=== PATIENT | male | born 1955 | race Caucasian/White ===

== ENCOUNTER 2017-07-29 22:56 | Emergency (ER) | payer MEDICAID ==
[~2017-07-29] VITALS: Ht 180.3 cm; Wt 111.0 kg
[~2017-07-29 22:56] MED LIST: CARI350T PO; CLA10T PO; COMP-18; COU5T PO; DOL10T PO; ESOM40CA PO; FURO40TA4 PO; HYDR-569 PO; HYDR50TA65 PO; INSU100V5 IJ; IRBE75TA30 PO; LANTUS SQ; ONDA4TAB6 PO; OXYC30TA85 PO; TRIA16.5 NS
[2017-07-29 23:03] VITALS: BP 138/78
== END 2017-07-30 | disposition home or self-care (01) ==
LOC: ER 22:57
DX: I83.92 Asymptomatic varicose veins of left lower extremity (principal); I48.91 Unspecified atrial fibrillation; I11.0 Hypertensive heart disease with heart failure; I50.9 Heart failure, unspecified; G89.29 Other chronic pain; E78.00 Pure hypercholesterolemia, unspecified; J44.9 Chronic obstructive pulmonary disease, unspecified; I27.20 Pulmonary hypertension, unspecified; K21.9 Gastro-esophageal reflux disease without esophagitis; E11.42 Type 2 diabetes mellitus with diabetic polyneuropathy; Z87.11 Personal history of peptic ulcer disease; Z87.891 Personal history of nicotine dependence; Z86.14 Personal history of Methicillin resistant Staphylococcus aureus infection; Z56.0 Unemployment, unspecified; Z79.01 Long term (current) use of anticoagulants; Z79.4 Long term (current) use of insulin; Z79.899 Other long term (current) drug therapy
CPT/HCPCS: 12001; 99283; A6449

== ENCOUNTER 2017-10-31 06:21 | Emergency (ER) | payer MEDICAID ==
[~2017-10-31] VITALS: Ht 180.3 cm; Wt 106.8 kg
[2017-10-31 07:20] VITALS: BP 139/74
== END 2017-10-31 07:21 | disposition home or self-care (01) ==
LOC: ER 06:22
DX: I83.92 Asymptomatic varicose veins of left lower extremity (principal); E78.00 Pure hypercholesterolemia, unspecified; E11.42 Type 2 diabetes mellitus with diabetic polyneuropathy; G89.29 Other chronic pain; I11.0 Hypertensive heart disease with heart failure; I50.9 Heart failure, unspecified; J44.9 Chronic obstructive pulmonary disease, unspecified; I48.91 Unspecified atrial fibrillation; K21.9 Gastro-esophageal reflux disease without esophagitis; Z86.14 Personal history of Methicillin resistant Staphylococcus aureus infection; Z98.890 Other specified postprocedural states; Z87.891 Personal history of nicotine dependence; Z79.4 Long term (current) use of insulin; Z79.01 Long term (current) use of anticoagulants; Z88.5 Allergy status to narcotic agent; Z56.0 Unemployment, unspecified
CPT/HCPCS: 37799; 99284; A6449

== ENCOUNTER 2017-11-20 01:58 | Emergency (ER) | payer MEDICAID ==
[~2017-11-20] VITALS: Ht 180.3 cm; Wt 109.8 kg
[2017-11-20 02:05] VITALS: BP 168/90
[2017-11-20] MEDS ORDERED: triamcinolone acetonide 40mg/ml inj IM ONE (02:45)
[2017-11-20] MEDS ORDERED: LIDOcaine 1% 30ml preserv. free vial IJ ONE (02:45)
[2017-11-20] MEDS ORDERED: ketorolac trometh inj. 60 MG/2 ML VIAL IM ONE (03:25)
[2017-11-20] MEDS ORDERED: HYDROcodone/acetaminophen 5mg/325mg tablet PO ONE (03:25)
[2017-11-20] MEDS ORDERED: ondansetron 4mg rapidly disintigrating tab PO ONE (03:25)
[2017-11-20] MEDS ORDERED: morphine 4 MG/ML inj SYRINge IM ONE (03:30)
== END 2017-11-20 03:41 | disposition home or self-care (01) ==
LOC: ER 01:58
DX: M25.511 Pain in right shoulder (principal); I13.0 Hypertensive heart and chronic kidney disease with heart failure and stage 1 through stage 4 chronic kidney disease, or unspecified chronic kidney disease; E11.22 Type 2 diabetes mellitus with diabetic chronic kidney disease; N18.9 Chronic kidney disease, unspecified; I50.9 Heart failure, unspecified; E11.42 Type 2 diabetes mellitus with diabetic polyneuropathy; J44.9 Chronic obstructive pulmonary disease, unspecified; E78.00 Pure hypercholesterolemia, unspecified; I48.91 Unspecified atrial fibrillation; Z88.6 Allergy status to analgesic agent; Z79.4 Long term (current) use of insulin
CPT/HCPCS: 73030; 96372; 99284; J1885; J2270; J3301; J3490

== ENCOUNTER 2018-06-27 21:33 | Emergency (ER) | payer MEDICARE, MEDICAID ==
[~2018-06-27] VITALS: Ht 180.3 cm; Wt 109.0 kg
[~2018-06-27 21:33] MED LIST changes: +HYDR-4383 PO; -HYDR-569 PO
[2018-06-27 21:56] VITALS: BP 150/75
--- NOTE | 2018-06-27 22:32 | NUR ---
PATIENT ON COUMADIN FOR AFIB RIGHT LOWER LEG "VARICOSE VEIN BURST":ANTERIOR WRAPPED IN COBAN OVER 4X4
--- NOTE | 2018-06-27 22:54 | NUR ---
called me into his room to aske if his legs were swollen, I informed him he does have some edema and that he should put his feet up on the bed, he refused.
[2018-06-27] MEDS ORDERED: LIDOcaine 1.5% w/epinephrine 1:200,000 5ml ampul IJ ONE (23:20)
[2018-06-27] MEDS ORDERED: LIDOcaine 1% w/EPI 1:100,000 30ml vial (MDV) IJ ONE (23:25)
--- NOTE | 2018-06-27 23:45 | NUR ---
Pt was totally inappropriate with the physician right now. Telling him he didn't know what he was doing. The MD was doing everything right.
== END 2018-06-28 00:21 | disposition home or self-care (01) ==
LOC: ER 21:33
DX: I83.891 Varicose veins of right lower extremity with other complications (principal); E11.42 Type 2 diabetes mellitus with diabetic polyneuropathy; I48.91 Unspecified atrial fibrillation; E78.00 Pure hypercholesterolemia, unspecified; I11.0 Hypertensive heart disease with heart failure; I50.9 Heart failure, unspecified; J44.9 Chronic obstructive pulmonary disease, unspecified; K21.9 Gastro-esophageal reflux disease without esophagitis; G89.29 Other chronic pain; Z87.891 Personal history of nicotine dependence; Z56.0 Unemployment, unspecified; Z98.890 Other specified postprocedural states; Z88.5 Allergy status to narcotic agent; Z79.899 Other long term (current) drug therapy; Z79.4 Long term (current) use of insulin; Z79.01 Long term (current) use of anticoagulants; Z99.81 Dependence on supplemental oxygen
CPT/HCPCS: 35226; 99284; J3490; 99283

== ENCOUNTER 2018-07-26 21:07 | Emergency (ER) | payer MEDICARE, MEDICAID ==
[~2018-07-26] VITALS: Ht 180.3 cm; Wt 94.5 kg
[2018-07-27] MEDS ORDERED: HYDROcodone/acetaminophen 5mg/325mg tablet PO ONE
[2018-07-27 00:56] VITALS: BP 144/87
== END 2018-07-27 01:00 | disposition home or self-care (01) ==
LOC: ER 21:08
DX: I83.893 Varicose veins of bilateral lower extremities with other complications (principal); I48.91 Unspecified atrial fibrillation; J44.9 Chronic obstructive pulmonary disease, unspecified; K21.9 Gastro-esophageal reflux disease without esophagitis; G89.29 Other chronic pain; E11.42 Type 2 diabetes mellitus with diabetic polyneuropathy; I11.0 Hypertensive heart disease with heart failure; I50.9 Heart failure, unspecified; E78.00 Pure hypercholesterolemia, unspecified; Z86.14 Personal history of Methicillin resistant Staphylococcus aureus infection; Z98.890 Other specified postprocedural states; Z56.0 Unemployment, unspecified; Z88.5 Allergy status to narcotic agent; Z79.4 Long term (current) use of insulin; Z79.899 Other long term (current) drug therapy; Z79.01 Long term (current) use of anticoagulants
CPT/HCPCS: 12001; 99283

== ENCOUNTER 2018-08-02 21:16 | Emergency (ER) | payer MEDICARE, MEDICAID ==
[~2018-08-02] VITALS: Ht 180.3 cm; Wt 107.5 kg
[2018-08-03] MEDS ORDERED: acetaminophen 325mg tablet PO ONE (00:40)
[2018-08-03 01:20] VITALS: BP 122/68
== END 2018-08-03 01:25 | disposition home or self-care (01) ==
LOC: ER 21:17
DX: I83.91 Asymptomatic varicose veins of right lower extremity (principal); I11.0 Hypertensive heart disease with heart failure; I50.9 Heart failure, unspecified; E11.40 Type 2 diabetes mellitus with diabetic neuropathy, unspecified; I48.91 Unspecified atrial fibrillation; J44.9 Chronic obstructive pulmonary disease, unspecified; K21.9 Gastro-esophageal reflux disease without esophagitis; G89.29 Other chronic pain; M54.9 Dorsalgia, unspecified; Z56.0 Unemployment, unspecified; Z79.4 Long term (current) use of insulin; Z79.01 Long term (current) use of anticoagulants; Z88.6 Allergy status to analgesic agent
CPT/HCPCS: 99283

== ENCOUNTER 2019-02-04 15:51 | Emergency (ER) | payer MEDICARE, MEDICAID ==
[~2019-02-04] VITALS: Ht 180.3 cm; Wt 114.0 kg
--- NOTE | 2019-02-04 16:42 | NUR ---
Pt able to ambulate from triage to ER bed #6 +blisters on RLE, anterior dsouza above ankle +varicose veins on LLE
[2019-02-04] MEDS ORDERED: BACDS PO (16:55)
[2019-02-04] MEDS ORDERED: CEPH500C5 PO (16:55)
[2019-02-04] MEDS ORDERED: sulfamethoxazole/trimethoprim DS (800/160mg) tablet PO ONE (16:55)
[2019-02-04] MEDS ORDERED: cephalexin 250mg capsule PO ONE (16:55)
[2019-02-04] MEDS ORDERED: bacitracin 15gm ointment TP ONE (16:55)
[2019-02-04 17:12] VITALS: BP 130/74
== END 2019-02-04 17:31 | disposition home or self-care (01) ==
LOC: ER 15:52
DX: S80.821A Blister (nonthermal), right lower leg, initial encounter (principal); L03.115 Cellulitis of right lower limb; R60.0 Localized edema; I48.91 Unspecified atrial fibrillation; I11.0 Hypertensive heart disease with heart failure; I50.9 Heart failure, unspecified; E78.00 Pure hypercholesterolemia, unspecified; J44.9 Chronic obstructive pulmonary disease, unspecified; G47.30 Sleep apnea, unspecified; K21.9 Gastro-esophageal reflux disease without esophagitis; E11.9 Type 2 diabetes mellitus without complications; G89.29 Other chronic pain; F17.210 Nicotine dependence, cigarettes, uncomplicated; G62.9 Polyneuropathy, unspecified; Z86.14 Personal history of Methicillin resistant Staphylococcus aureus infection; Z87.11 Personal history of peptic ulcer disease; Z98.890 Other specified postprocedural states; Z56.0 Unemployment, unspecified; Z88.5 Allergy status to narcotic agent; Z79.4 Long term (current) use of insulin; Z79.01 Long term (current) use of anticoagulants; Z79.899 Other long term (current) drug therapy; X58.XXXA Exposure to other specified factors, initial encounter; Y93.89 Activity, other specified; Y92.89 Other specified places as the place of occurrence of the external cause; Y99.8 Other external cause status
CPT/HCPCS: 10140; 99284

== ENCOUNTER 2019-02-11 17:08 | Inpatient (IN) | payer MEDICARE, MEDICAID ==
[~2019-02-11] VITALS: Ht 180.3 cm; Wt 106.0 kg
[~2019-02-11 17:08] MED LIST changes: +BACDS PO; +CEPH500C5 PO
[2019-02-11] MEDS ORDERED: ondansetron/PF 4mg/2ml inj IV ONE (17:40)
[2019-02-11] MEDS ORDERED: piperacillin/tazo 3.375gm/50ml 50 ML IV ONE (17:40)
[2019-02-11] MEDS: morphine 4 MG/ML inj SYRINge IV PRN ×2 (18:02→22:51)
[2019-02-11 18:10] LABS: BASOPHILS % (AUTO) 0.4 % (0-1); EOSINOPHILS # (AUTO) 0.2 X10'3 (0-0.9); EOSINOPHILS % (AUTO) 3.5 % (0-6); HEMATOCRIT 36.2 % (42.0-52.0); HEMOGLOBIN 11.7 g/dl (14.0-17.9); LYMPHOCYTES # (AUTO) 0.7 X10'3 (1.1-4.8); LYMPHOCYTES % (AUTO) 10.5 % (21-51); MEAN CORPUSCULAR HEMOGLOBIN 27.7 PG (27.0-31.0); MEAN CORPUSCULAR HGB CONC 32.2 g/dL (33.0-36.5); MEAN PLATELET VOLUME 10.1 FL (7.4-10.4); MONOCYTES # (AUTO) 0.6 X10'3 (0-0.9); MONOCYTES % (AUTO) 8.6 % (2-12); NEUTROPHILS # (AUTO) 5.5 X10'3 (1.8-7.7); PLATELET COUNT 131 X10'3 (140-440); RED BLOOD COUNT 4.21 X10'6 (4.70-6.10); RED CELL DISTRIBUTION WIDTH 14.4 % (11.5-14.5); WHITE BLOOD COUNT 7.1 X10'3 (4.5-11.0)
[2019-02-11] MEDS ORDERED: albuterol 2.5 MG/3 ML nebule NEB ONE (18:25)
[2019-02-11] MEDS ORDERED: ipratropium/albuterol 3ml nebule NEB ONE (18:25)
[2019-02-11 18:26] LABS: ALANINE AMINOTRANSFERASE 30 U/L (12-78); ALBUMIN 3.5 G/DL (3.4-5.0); ALBUMIN/GLOBULIN RATIO 0.8 (1.1-1.5); ALKALINE PHOSPHATASE 147 IU/L (46-116); ANION GAP 4 (8-16); ASPARTATE AMINO TRANSFERASE 30 U/L (10-37); BILIRUBIN,TOTAL 0.7 MG/DL (0.1-1.0); BLOOD UREA NITROGEN 26 MG/DL (7-18); BUN/CREATININE RATIO 18.6 (5.4-32.0); CALCIUM 8.9 MG/DL (8.5-10.1); CHLORIDE 101 MMOL/L (99-107); GLUCOSE 100 MG/DL (70-104); POTASSIUM 5.1 MMOL/L (3.5-5.1); SODIUM 139 MMOL/L (135-145); TOTAL PROTEIN 7.8 G/DL (6.4-8.2); eGFR 51 ML/MIN
[2019-02-11] MEDS ORDERED: OXYC15TA88 PO (18:40)
[2019-02-11] MEDS ORDERED: DILT180C53 PO (18:40)
[2019-02-11] MEDS ORDERED: POTA10CA44 PO (18:40)
[2019-02-11] MEDS ORDERED: KETO15CR2 TOP (18:40)
[2019-02-11] MEDS ORDERED: CHOL50004 PO (18:40)
[2019-02-11] MEDS ORDERED: OMEP40CA13 PO (18:40)
[2019-02-11] MEDS ORDERED: IPRA3AMP31 (18:40)
[2019-02-11] MEDS ORDERED: LYR75C PO (18:40)
[2019-02-11] MEDS ORDERED: UMEC62.5 PO (18:40)
[2019-02-11] MEDS ORDERED: IRBE150T27 PO (18:40)
[2019-02-11] MEDS ORDERED: ALBU18HF2 PO (18:40)
--- NOTE | 2019-02-11 20:10 | NUR ---
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 INSTRUCTED THAT SANDWICHES ARE FOR PATIENTS ONLY AND WE HAVE A VERY LIMITED SUPPLY AND ORIENTED TO VENDING MACHINES THROUGHOUT HOSPITAL, ANDREW FLORES OFFERED LUMBER DRIVER BIANCA CHAIMFANTASMA INSTEAD. JAROCHO HUSAIN REPORTED THAT PT WAS TRYING TO LEAVE ER TO "MAKE A PHONE CALL", PT GIVEN IN ROOM PHONE INSTEAD. PT THEN TRIED TO READJUST OXYGEN. PT IS PACING IN ROOM.
[2019-02-11] MEDS ORDERED: magnesium 2GM in 50ml NS 50 ML IV PRN (20:35)
[2019-02-11] MEDS ORDERED: potassium CL 10mEq/100ml bag 100 ML IV PRN ×2 (20:35)
[2019-02-11] MEDS ORDERED: potassium Cl 20 mEq SR tablet PO PRN ×2 (20:35)
[2019-02-11] MEDS ORDERED: magnesium 4gm in 100ml NS 100 ML IV PRN (20:35)
[2019-02-11] MEDS ORDERED: mag hydrox/Alum hydrox/simeth 30ml oral suspension PO PRN (20:35)
[2019-02-11] MEDS ORDERED: magnesium Cl slow-release 64mg tablet PO PRN (20:35)
[2019-02-11] MEDS ORDERED: ondansetron/PF 4mg/2ml inj IV PRN (20:35)
[2019-02-11] MEDS ORDERED: acetaminophen 325mg tablet PO PRN (20:35)
[2019-02-11 21:30] VITALS: BP 120/20
--- NOTE | 2019-02-11 21:30 | NUR ---
TOOK PT UP TO ROOM. PT UNSATISFIED WITH "SO MANY RULES HERE". PT UPSET THAT HE COULD NOT HAVE INHALER IN HIS POCKET. RECEIVING RN YAKOV AND I TALKED WITH PT ABOUT HOW IMPORTANT IT IS THAT THE NURSES KNOW WHAT MEDICATIONS HE TAKES AND WHEN. PT THEN DID NOT WANT TO WEAR OXYGEN 24/7 AND DID NOT WANT SIDE RAILS UP. PT STATED HE WANTED TO LEAVE BUT PT DECIDED TO GIVE "US ONE NIGHT AND SEE HOW IT GOES".
[2019-02-11] MEDS ORDERED: glucagon, human recombinant 1mg kit SUBCUT PRN (23:05)
[2019-02-11] MEDS ORDERED: dextrose ORAL solution 15 GM/59 ML bottle PO PRN ×2 (23:05)
[2019-02-11] MEDS ORDERED: MESSAGE TO PHARMACY PO ONE (23:05)
[2019-02-11] MEDS ORDERED: dextrose 50%-water 50ml dispensing syringe IV PRN ×2 (23:05)
[2019-02-11] MEDS ORDERED: ipratropium/albuterol 3ml nebule NEB PRN (23:05)
[2019-02-12] VITALS: BP 130/80
[2019-02-12] MEDS: oxyCODONE IR 5mg (immed. release) tablet PO PRN ×5 (02:04→23:54)
[2019-02-12] MEDS: ipratropium/albuterol 3ml nebule NEB SCH ×6 (02:17→23:00)
[2019-02-12 06:02] LABS: BASOPHILS # (AUTO) 0.1 X10'3 (0-0.2); BASOPHILS % (AUTO) 1.2 % (0-1); EOSINOPHILS # (AUTO) 0.3 X10'3 (0-0.9); EOSINOPHILS % (AUTO) 4.9 % (0-6); HEMATOCRIT 36.2 % (42.0-52.0); HEMOGLOBIN 11.5 g/dl (14.0-17.9); LYMPHOCYTES # (AUTO) 0.9 X10'3 (1.1-4.8); MEAN CORPUSCULAR HEMOGLOBIN 28.2 PG (27.0-31.0); MEAN CORPUSCULAR HGB CONC 31.9 g/dL (33.0-36.5); MEAN CORPUSCULAR VOLUME 88.5 FL (78-98); MEAN PLATELET VOLUME 10.6 FL (7.4-10.4); MONOCYTES # (AUTO) 0.6 X10'3 (0-0.9); NEUTROPHILS # (AUTO) 4.7 X10'3 (1.8-7.7); NEUTROPHILS % (AUTO) 71.9 % (42-75); PLATELET COUNT 127 X10'3 (140-440); RED BLOOD COUNT 4.09 X10'6 (4.70-6.10); RED CELL DISTRIBUTION WIDTH 14.7 % (11.5-14.5); WHITE BLOOD COUNT 6.6 X10'3 (4.5-11.0)
[2019-02-12 06:14] LABS: ALBUMIN 3.6 G/DL (3.4-5.0); ANION GAP 5 (8-16); BLOOD UREA NITROGEN 30 MG/DL (7-18); BUN/CREATININE RATIO 23.1 (5.4-32.0); CALCIUM 8.8 MG/DL (8.5-10.1); CHLORIDE 100 MMOL/L (99-107); GLUCOSE 78 MG/DL (70-104); MAGNESIUM 1.8 MG/DL (1.5-2.4); POTASSIUM 5.1 MMOL/L (3.5-5.1); SODIUM 139 MMOL/L (135-145); TOTAL CARBON DIOXIDE 33.6 MMOL/L (24-32); eGFR 55 ML/MIN
--- NOTE | 2019-02-12 06:30 | NUR ---
Patient in room [facility]. I have received report from Pat RN and had the opportunity to ask questions and assume patient care.
[2019-02-12 06:46] LABS: PLATELET ESTIMATE DECREASED
[2019-02-12 06:47] LABS: LARGE PLATELETS FEW
[2019-02-12 08:00] VITALS: BP 122/55
[2019-02-12] MEDS ORDERED: enoxaparin 40mg/0.4ml syringe SQ SCH (08:00)
[2019-02-12] MEDS: K and/or MAG REPLACEMENT MC SCH (08:00)
[2019-02-12] MEDS: heparin, porcine 5000 units/ml vial SQ SCH ×2 (08:00→19:42)
[2019-02-12] MEDS: pregabalin 75mg capsule PO SCH (08:00)
[2019-02-12] MEDS: budesonide 0.5mg/2ml UD nebule IH SCH ×2 (09:00→20:20)
[2019-02-12] MEDS: diltiazem CD 180mg cap (once-daily) PO SCH (09:27)
[2019-02-12] MEDS: loratadine 10mg tablet PO SCH (09:29)
[2019-02-12] MEDS: pantoprazole 40mg Tablet.DR PO SCH (09:29)
[2019-02-12] MEDS: vitamin D (cholecalciferol) 1,000 unit tablet PO SCH (09:30)
[2019-02-12] MEDS: furosemide 40mg/4ml inj IV SCH ×3 (09:31→19:43)
[2019-02-12] MEDS: ketoconazole 2% cream 15gm TP SCH (09:34)
[2019-02-12] MEDS: CefTRIAXone 2gm/D5W 50ml 50 ML IV SCH (09:35)
[2019-02-12 11:00] VITALS: BP 111/69
--- NOTE | 2019-02-12 11:35 | NUR ---
WOUND INFECTION EDUCATION PROVIDED BY WOUND CARE 1. Patient instructed to call their primary doctor, or go the ED immediately if any of the following symptoms occur: * Increased pain in wound * Increase in drainage from the wound * Redness in the skin surrounding the wound * Warmth in the skin surrounding the wound * Bleeding from the wound * Temperature of 101 or greater 2. If any of these occur while in the hospital tell a nurse immediately. Addendum: 02/12/19 at 1137 by Olga Ortega RN Amended: Links added.
--- NOTE | 2019-02-12 18:30 | NUR ---
Problems reprioritized. Patient report given, questions answered & plan of care reviewed with Sharon HUSAIN.
--- NOTE | 2019-02-12 18:35 | NUR ---
Patient in room [facility] 355. I have received report from PEREZ HUSAIN and had the opportunity to ask questions and assume patient care.
[2019-02-12] MEDS: lactobacillus rhamnosus 10,000 MMU CELLS/CAPSULE PO SCH (19:36)
[2019-02-12] MEDS: insulin glargine (Lantus) pen - multi-dose SQ SCH (21:00)
[2019-02-13] VITALS: BP 134/77
[2019-02-13] MEDS: ipratropium/albuterol 3ml nebule NEB SCH ×5 (03:00→19:23)
[2019-02-13] MEDS: oxyCODONE IR 5mg (immed. release) tablet PO PRN ×5 (04:23→23:24)
[2019-02-13 05:35] LABS: BASOPHILS % (AUTO) 0.6 % (0-1); EOSINOPHILS # (AUTO) 0.2 X10'3 (0-0.9); EOSINOPHILS % (AUTO) 3.8 % (0-6); HEMATOCRIT 36.3 % (42.0-52.0); HEMOGLOBIN 11.6 g/dl (14.0-17.9); LYMPHOCYTES # (AUTO) 0.8 X10'3 (1.1-4.8); LYMPHOCYTES % (AUTO) 12.8 % (21-51); MEAN CORPUSCULAR HEMOGLOBIN 27.8 PG (27.0-31.0); MEAN CORPUSCULAR HGB CONC 32.1 g/dL (33.0-36.5); MEAN CORPUSCULAR VOLUME 86.8 FL (78-98); MEAN PLATELET VOLUME 9.9 FL (7.4-10.4); MONOCYTES # (AUTO) 0.6 X10'3 (0-0.9); MONOCYTES % (AUTO) 8.5 % (2-12); NEUTROPHILS # (AUTO) 4.8 X10'3 (1.8-7.7); NEUTROPHILS % (AUTO) 74.3 % (42-75); PLATELET COUNT 123 X10'3 (140-440); RED BLOOD COUNT 4.18 X10'6 (4.70-6.10); RED CELL DISTRIBUTION WIDTH 14.7 % (11.5-14.5); WHITE BLOOD COUNT 6.5 X10'3 (4.5-11.0)
[2019-02-13 05:54] LABS: ALBUMIN 3.4 G/DL (3.4-5.0); ANION GAP 1 (8-16); BLOOD UREA NITROGEN 23 MG/DL (7-18); BUN/CREATININE RATIO 23.7 (5.4-32.0); CALCIUM 9.4 MG/DL (8.5-10.1); CHLORIDE 100 MMOL/L (99-107); CREATININE 0.97 MG/DL (0.60-1.10); GLUCOSE 101 MG/DL (70-104); MAGNESIUM 1.8 MG/DL (1.5-2.4); POTASSIUM 4.5 MMOL/L (3.5-5.1); SODIUM 140 MMOL/L (135-145); TOTAL CARBON DIOXIDE 38.7 MMOL/L (24-32); eGFR 77 ML/MIN
--- NOTE | 2019-02-13 06:30 | NUR ---
Problems reprioritized. Patient report given, questions answered & plan of care reviewed with PHIL HUSAIN.
--- NOTE | 2019-02-13 07:06 | NUR ---
Patient in room [facility] 355. I have received report from MI HUSAIN and had the opportunity to ask questions and assume patient care.
[2019-02-13] MEDS: pregabalin 75mg capsule PO SCH (08:00)
[2019-02-13] MEDS: K and/or MAG REPLACEMENT MC SCH (08:00)
[2019-02-13] MEDS: heparin, porcine 5000 units/ml vial SQ SCH ×2 (08:00→19:22)
[2019-02-13] MEDS: budesonide 0.5mg/2ml UD nebule IH SCH ×2 (08:12→19:23)
[2019-02-13] MEDS: lactobacillus rhamnosus 10,000 MMU CELLS/CAPSULE PO SCH ×2 (08:30→19:19)
[2019-02-13] MEDS: loratadine 10mg tablet PO SCH (08:30)
[2019-02-13] MEDS: pantoprazole 40mg Tablet.DR PO SCH (08:31)
[2019-02-13] MEDS: diltiazem CD 180mg cap (once-daily) PO SCH (08:31)
[2019-02-13] MEDS: CefTRIAXone 2gm/D5W 50ml 50 ML IV SCH (08:35)
[2019-02-13] MEDS: furosemide 40mg/4ml inj IV SCH ×2 (08:35→19:22)
[2019-02-13] MEDS: vitamin D (cholecalciferol) 1,000 unit tablet PO SCH (08:36)
[2019-02-13] MEDS: ketoconazole 2% cream 15gm TP SCH (08:45)
[2019-02-13 09:05] VITALS: BP 146/80
--- NOTE | 2019-02-13 10:41 | NUR ---
DM Consult: A1C <7 and not appropriate for DM ed at this time. Addendum: 02/13/19 at [address] Amended: Links added.
[2019-02-13] MEDS: acetaminophen 325mg tablet PO PRN ×2 (11:35→19:19)
[2019-02-13] MEDS ORDERED: albuterol 2.5 MG/3 ML nebule NEB PRN (12:50)
[2019-02-13] MEDS: calamine LOTION TP PRN (13:39)
--- NOTE | 2019-02-13 13:56 | NUR ---
patient noticed by Dr Jara and staff to be itching. Rash observed on torso and bilat thighs. Nothing observed in patients hair. patient stated that he has fleas at home and has had rash for about a month. Calamine liquid ordered and given. patient still has +3 odema in bilat lower legs Patient non compliant with elevating legs.. home in haler ok to use q4hrly patient wanted inhaler at bedside but Dr jara stated patient can have inhaler q4hrly. But staff will keep inhaler since patient is already having neb tmt.
[2019-02-13] MEDS: VENTOLIN IH PRN (17:01)
--- NOTE | 2019-02-13 17:33 | NUR ---
patient scraped right dsouza on chair. cleaned and bandaide applied to site. patient appears comfortable at time of report
[2019-02-13 18:00] VITALS: BP 129/74
--- NOTE | 2019-02-13 18:23 | NUR ---
Problems reprioritized. Patient report given, questions answered & plan of care reviewed with Sharon HUSAIN.
--- NOTE | 2019-02-13 18:30 | NUR ---
Patient in room [facility] 355. I have received report from PHIL HUSAIN AND LORETO RN and had the opportunity to ask questions and assume patient care.
[2019-02-13] MEDS: insulin glargine (Lantus) pen - multi-dose SQ SCH (21:00)
[2019-02-13 23:45] VITALS: BP 119/62
[2019-02-14] MEDS: ipratropium/albuterol 3ml nebule NEB SCH ×8 (00:02→23:00)
[2019-02-14] MEDS: VENTOLIN IH PRN ×2 (03:06→14:12)
[2019-02-14] MEDS: oxyCODONE IR 5mg (immed. release) tablet PO PRN ×5 (04:18→22:29)
[2019-02-14 05:23] LABS: BASOPHILS % (AUTO) 0.5 % (0-1); EOSINOPHILS # (AUTO) 0.2 X10'3 (0-0.9); EOSINOPHILS % (AUTO) 4.3 % (0-6); HEMATOCRIT 36.4 % (42.0-52.0); HEMOGLOBIN 11.8 g/dl (14.0-17.9); LYMPHOCYTES # (AUTO) 0.8 X10'3 (1.1-4.8); LYMPHOCYTES % (AUTO) 14.9 % (21-51); MEAN CORPUSCULAR HEMOGLOBIN 27.9 PG (27.0-31.0); MEAN CORPUSCULAR HGB CONC 32.3 g/dL (33.0-36.5); MEAN CORPUSCULAR VOLUME 86.5 FL (78-98); MEAN PLATELET VOLUME 10.3 FL (7.4-10.4); MONOCYTES # (AUTO) 0.5 X10'3 (0-0.9); MONOCYTES % (AUTO) 9.3 % (2-12); PLATELET COUNT 108 X10'3 (140-440); RED BLOOD COUNT 4.21 X10'6 (4.70-6.10); RED CELL DISTRIBUTION WIDTH 14.5 % (11.5-14.5); WHITE BLOOD COUNT 5.7 X10'3 (4.5-11.0)
[2019-02-14 05:36] LABS: ALBUMIN 3.3 G/DL (3.4-5.0); ANION GAP 3 (8-16); BLOOD UREA NITROGEN 22 MG/DL (7-18); BUN/CREATININE RATIO 27.2 (5.4-32.0); CALCIUM 9.7 MG/DL (8.5-10.1); CHLORIDE 100 MMOL/L (99-107); CREATININE 0.81 MG/DL (0.60-1.10); GLUCOSE 100 MG/DL (70-104); MAGNESIUM 1.7 MG/DL (1.5-2.4); POTASSIUM 4.2 MMOL/L (3.5-5.1); SODIUM 141 MMOL/L (135-145); eGFR > 90 ML/MIN
--- NOTE | 2019-02-14 06:30 | NUR ---
Problems reprioritized. Patient report given, questions answered & plan of care reviewed with PHIL DANGELO RN.
--- NOTE | 2019-02-14 06:40 | NUR ---
Patient in room [facility] 355. I have received report from MI HUSAIN and had the opportunity to ask questions and assume patient care.
[2019-02-14] MEDS: budesonide 0.5mg/2ml UD nebule IH SCH ×2 (06:57→19:38)
[2019-02-14 08:00] VITALS: BP 142/68
[2019-02-14] MEDS: K and/or MAG REPLACEMENT MC SCH (08:00)
[2019-02-14] MEDS: heparin, porcine 5000 units/ml vial SQ SCH ×2 (08:00→20:00)
[2019-02-14] MEDS: pregabalin 75mg capsule PO SCH (08:00)
[2019-02-14] MEDS: lactobacillus rhamnosus 10,000 MMU CELLS/CAPSULE PO SCH ×2 (08:07→21:37)
[2019-02-14] MEDS: diltiazem CD 180mg cap (once-daily) PO SCH (08:07)
[2019-02-14] MEDS: loratadine 10mg tablet PO SCH (08:07)
[2019-02-14] MEDS: furosemide 40mg/4ml inj IV SCH ×3 (08:10→20:00)
[2019-02-14] MEDS: vitamin D (cholecalciferol) 1,000 unit tablet PO SCH (08:10)
[2019-02-14] MEDS: ketoconazole 2% cream 15gm TP SCH (08:12)
[2019-02-14] MEDS: CefTRIAXone 2gm/D5W 50ml 50 ML IV SCH (08:14)
[2019-02-14] MEDS: pantoprazole 40mg Tablet.DR PO SCH (08:30)
[2019-02-14 11:00] VITALS: BP 129/69
[2019-02-14] MEDS ORDERED: furosemide 40mg/4ml inj IV SCH (13:00)
[2019-02-14] MEDS: calamine LOTION TP PRN (14:00)
[2019-02-14 18:00] VITALS: BP 114/60
--- NOTE | 2019-02-14 18:30 | NUR ---
Problems reprioritized. Patient report given, questions answered & plan of care reviewed with Joesph HUSAIN.
--- NOTE | 2019-02-14 18:31 | NUR ---
Patient in room [facility] 355. I have received report from Estella Rn and RODRIGUE Herman and had the opportunity to ask questions and assume patient care.
[2019-02-14] MEDS: insulin glargine (Lantus) pen - multi-dose SQ SCH (21:00)
--- NOTE | 2019-02-15 00:38 | NUR ---
Pt refused midnight vitals.
[2019-02-15] MEDS: oxyCODONE IR 5mg (immed. release) tablet PO PRN ×6 (02:29→23:53)
[2019-02-15] MEDS: ipratropium/albuterol 3ml nebule NEB SCH ×6 (03:00→23:00)
[2019-02-15 05:55] LABS: BASOPHILS % (AUTO) 0.5 % (0-1); EOSINOPHILS # (AUTO) 0.3 X10'3 (0-0.9); EOSINOPHILS % (AUTO) 4.3 % (0-6); HEMATOCRIT 36.1 % (42.0-52.0); HEMOGLOBIN 11.6 g/dl (14.0-17.9); LYMPHOCYTES # (AUTO) 0.8 X10'3 (1.1-4.8); LYMPHOCYTES % (AUTO) 13.2 % (21-51); MEAN CORPUSCULAR HEMOGLOBIN 27.8 PG (27.0-31.0); MEAN CORPUSCULAR VOLUME 86.7 FL (78-98); MEAN PLATELET VOLUME 10.2 FL (7.4-10.4); MONOCYTES # (AUTO) 0.7 X10'3 (0-0.9); MONOCYTES % (AUTO) 10.5 % (2-12); NEUTROPHILS # (AUTO) 4.5 X10'3 (1.8-7.7); NEUTROPHILS % (AUTO) 71.5 % (42-75); PLATELET COUNT 134 X10'3 (140-440); RED BLOOD COUNT 4.17 X10'6 (4.70-6.10); RED CELL DISTRIBUTION WIDTH 14.4 % (11.5-14.5); WHITE BLOOD COUNT 6.3 X10'3 (4.5-11.0)
[2019-02-15 05:58] LABS: ALBUMIN 3.3 G/DL (3.4-5.0); ANION GAP 2 (8-16); BLOOD UREA NITROGEN 17 MG/DL (7-18); BUN/CREATININE RATIO 22.4 (5.4-32.0); CALCIUM 9.1 MG/DL (8.5-10.1); CHLORIDE 100 MMOL/L (99-107); CREATININE 0.76 MG/DL (0.60-1.10); GLUCOSE 119 MG/DL (70-104); MAGNESIUM 1.6 MG/DL (1.5-2.4); POTASSIUM 4.1 MMOL/L (3.5-5.1); SODIUM 142 MMOL/L (135-145); TOTAL CARBON DIOXIDE 39.6 MMOL/L (24-32); eGFR > 90 ML/MIN
--- NOTE | 2019-02-15 06:03 | NUR ---
Problems reprioritized. Patient report given, questions answered & plan of care reviewed with RODRIGUE Cristina.
--- NOTE | 2019-02-15 06:40 | NUR ---
Patient in room [facility] 355. I have received report from RODRIGUE Pink and had the opportunity to ask questions and assume patient care.
[2019-02-15] MEDS: K and/or MAG REPLACEMENT MC SCH (07:06)
[2019-02-15] MEDS: CefTRIAXone 2gm/D5W 50ml 50 ML IV SCH (07:26)
[2019-02-15] MEDS: lactobacillus rhamnosus 10,000 MMU CELLS/CAPSULE PO SCH ×2 (07:28→19:47)
[2019-02-15] MEDS: diltiazem CD 180mg cap (once-daily) PO SCH (07:28)
[2019-02-15] MEDS: loratadine 10mg tablet PO SCH (07:28)
[2019-02-15] MEDS: vitamin D (cholecalciferol) 1,000 unit tablet PO SCH (07:29)
[2019-02-15] MEDS: pantoprazole 40mg Tablet.DR PO SCH (07:29)
[2019-02-15] MEDS: pregabalin 75mg capsule PO SCH (07:29)
[2019-02-15] MEDS: heparin, porcine 5000 units/ml vial SQ SCH ×2 (07:30→19:49)
[2019-02-15] MEDS: furosemide 40mg/4ml inj IV SCH (07:40)
[2019-02-15] MEDS: ketoconazole 2% cream 15gm TP SCH (07:41)
[2019-02-15 08:00] VITALS: BP 141/78
[2019-02-15] MEDS: budesonide 0.5mg/2ml UD nebule IH SCH ×2 (08:42→19:31)
--- NOTE | 2019-02-15 11:27 | NUR ---
Initial: Pt admit with CHF, VIKTORIA likely secondary to CHF, and BLE swelling with RLE cellulitis. Per MD notes VIKTORIA improving with diuresis and swelling on RLE improving however LLE still swollen. Per [facility] notes pt with partial thickness venous ulcer to right calf. Pt documented with 100% PO intake meeting nutrient needs. LBM 02/14. No nutrition diagnosis at this time. Will continue to follow. Recommendations: 1) Continue CHO controlled diet 2) Monitor need for ONS 3) Wt per rx Addendum: 02/15/19 at [address] Amended: Links added.
[2019-02-15 12:00] VITALS: BP 120/75
--- NOTE | 2019-02-15 15:15 | NUR ---
Patient refusing to elevate legs today. Patient was educated multiple time that by leaving legs in a dependent position for long can increase the swelling and also increase the pain. Patient stated an understanding but still refuses to elevate legs.
[2019-02-15] MEDS ORDERED: furosemide 40mg/4ml inj IV SCH (15:49)
[2019-02-15] MEDS ORDERED: furosemide 40mg/4ml inj IV ONE (15:55)
[2019-02-15 18:00] VITALS: BP 112/55
--- NOTE | 2019-02-15 18:21 | NUR ---
Problems reprioritized. Patient report given, questions answered & plan of care reviewed with RODRIGUE Davalos.
--- NOTE | 2019-02-15 18:25 | NUR ---
Patient in room [facility] 355. I have received report from RODRIGUE Cristina and had the opportunity to ask questions and assume patient care.
[2019-02-15] MEDS: acetaminophen 325mg tablet PO PRN (20:08)
[2019-02-15] MEDS: calamine LOTION TP PRN (20:19)
[2019-02-15] MEDS: insulin glargine (Lantus) pen - multi-dose SQ SCH (21:00)
[2019-02-16 00:29] VITALS: BP 99/50
[2019-02-16] MEDS: ipratropium/albuterol 3ml nebule NEB SCH ×6 (03:00→23:00)
[2019-02-16] MEDS: oxyCODONE IR 5mg (immed. release) tablet PO PRN ×5 (04:38→22:55)
[2019-02-16 06:06] LABS: ALBUMIN 3.2 G/DL (3.4-5.0); ANION GAP 1 (8-16); BLOOD UREA NITROGEN 24 MG/DL (7-18); BUN/CREATININE RATIO 26.4 (5.4-32.0); CALCIUM 9.8 MG/DL (8.5-10.1); CHLORIDE 99 MMOL/L (99-107); CREATININE 0.91 MG/DL (0.60-1.10); GLUCOSE 106 MG/DL (70-104); MAGNESIUM 1.8 MG/DL (1.5-2.4); SODIUM 141 MMOL/L (135-145); eGFR 83 ML/MIN
[2019-02-16 06:07] LABS: BASOPHILS % (AUTO) 0.6 % (0-1); EOSINOPHILS # (AUTO) 0.3 X10'3 (0-0.9); EOSINOPHILS % (AUTO) 4.5 % (0-6); HEMATOCRIT 36.4 % (42.0-52.0); HEMOGLOBIN 11.7 g/dl (14.0-17.9); LYMPHOCYTES # (AUTO) 0.7 X10'3 (1.1-4.8); LYMPHOCYTES % (AUTO) 11.6 % (21-51); MEAN CORPUSCULAR HEMOGLOBIN 28.1 PG (27.0-31.0); MEAN CORPUSCULAR HGB CONC 32.3 g/dL (33.0-36.5); MEAN PLATELET VOLUME 10.3 FL (7.4-10.4); MONOCYTES # (AUTO) 0.7 X10'3 (0-0.9); MONOCYTES % (AUTO) 11.3 % (2-12); NEUTROPHILS # (AUTO) 4.3 X10'3 (1.8-7.7); PLATELET COUNT 130 X10'3 (140-440); RED BLOOD COUNT 4.18 X10'6 (4.70-6.10); RED CELL DISTRIBUTION WIDTH 14.3 % (11.5-14.5)
--- NOTE | 2019-02-16 07:04 | NUR ---
Patient in room [facility] 355. I have received report from Susannah Moore RN and had the opportunity to ask questions and assume patient care.
--- NOTE | 2019-02-16 07:04 | NUR ---
Problems reprioritized. Patient report given, questions answered & plan of care reviewed with RODRIGUE Colón. Addendum: 02/16/19 at 0705 by Anisa Sofia RN Report given to RODRIGUE Argueta not Eldon
[2019-02-16 07:25] VITALS: BP 114/51
[2019-02-16] MEDS: heparin, porcine 5000 units/ml vial SQ SCH ×2 (08:00→20:00)
[2019-02-16] MEDS: K and/or MAG REPLACEMENT MC SCH (08:00)
[2019-02-16] MEDS: pregabalin 75mg capsule PO SCH (08:00)
[2019-02-16] MEDS: budesonide 0.5mg/2ml UD nebule IH SCH ×2 (08:38→19:02)
[2019-02-16] MEDS: CefTRIAXone 2gm/D5W 50ml 50 ML IV SCH (09:05)
[2019-02-16] MEDS: diltiazem CD 180mg cap (once-daily) PO SCH (09:06)
[2019-02-16] MEDS: loratadine 10mg tablet PO SCH (09:06)
[2019-02-16] MEDS: lactobacillus rhamnosus 10,000 MMU CELLS/CAPSULE PO SCH ×2 (09:07→20:06)
[2019-02-16] MEDS: pantoprazole 40mg Tablet.DR PO SCH (09:16)
[2019-02-16] MEDS: vitamin D (cholecalciferol) 1,000 unit tablet PO SCH (09:17)
[2019-02-16] MEDS: ketoconazole 2% cream 15gm TP SCH (09:22)
[2019-02-16] MEDS: acetaZOLAMIDE 250mg tablet PO SCH ×2 (09:25→20:06)
--- NOTE | 2019-02-16 09:30 | NUR ---
Patient received Oxycodone at 0930 but it didn't save because Dr. Faustin was editing the dose while I was giving it. For some reason, it didn't save it but it saved all the other medications. Unscheduled administration was done in the [facility].
--- NOTE | 2019-02-16 10:00 | NUR ---
Dr. Faustin is aware of the serum Co2 of 41. Diamox started.
[2019-02-16 11:46] VITALS: BP 104/59
[2019-02-16] MEDS ORDERED: iohexol 300mg/ml 100ml inj. ONE (11:50)
[2019-02-16] MEDS: furosemide 40mg/4ml inj IV SCH (16:01)
[2019-02-16 18:00] VITALS: BP 121/56
--- NOTE | 2019-02-16 18:20 | NUR ---
Problems reprioritized. Patient report given, questions answered & plan of care reviewed with Susannah Moore RN.
--- NOTE | 2019-02-16 18:29 | NUR ---
Patient in room [facility] 355. I have received report from RODRIGUE Argueta and had the opportunity to ask questions and assume patient care. Addendum: 02/16/19 at 1830 by Anisa Sofia RN Amended: Links added.
--- NOTE | 2019-02-16 19:53 | NUR ---
patient was founf in his room sitting on his bed with his dinner table and O2 cannula was not in place and lethargic, Spo2 was 74, RT inside the room and was given breathing tx, patient now sitting at the edge of the bed and sleepy but responsive and arousable.
[2019-02-16] MEDS: insulin glargine (Lantus) pen - multi-dose SQ SCH (21:00)
[2019-02-17] VITALS: BP 150/78
[2019-02-17] MEDS: ipratropium/albuterol 3ml nebule NEB SCH ×6 (03:00→23:00)
[2019-02-17] MEDS: oxyCODONE IR 5mg (immed. release) tablet PO PRN ×4 (06:00→23:15)
[2019-02-17 06:30] VITALS: BP 130/80
--- NOTE | 2019-02-17 06:35 | NUR ---
Patient in room [facility] 355. I have received report from Patricia Stout RN and had the opportunity to ask questions and assume patient care.
--- NOTE | 2019-02-17 06:48 | NUR ---
Problems reprioritized. Patient report given, questions answered & plan of care reviewed with RODRIGUE Mosley Pt has been stable and denies any discomfort and no changes in condition at this shift . Addendum: 02/17/19 at 0649 by Anisa Sofia RN Amended: Links added.
[2019-02-17 06:51] LABS: ALANINE AMINOTRANSFERASE 29 U/L (12-78); ALBUMIN 3.5 G/DL (3.4-5.0); ALBUMIN/GLOBULIN RATIO 0.7 (1.1-1.5); ALKALINE PHOSPHATASE 155 IU/L (46-116); ANION GAP 7 (8-16); ASPARTATE AMINO TRANSFERASE 31 U/L (10-37); BASOPHILS % (AUTO) 0.5 % (0-1); BILIRUBIN,TOTAL 1.3 MG/DL (0.1-1.0); BLOOD UREA NITROGEN 36 MG/DL (7-18); BUN/CREATININE RATIO 30.5 (5.4-32.0); CALCIUM 10.4 MG/DL (8.5-10.1); CHLORIDE 95 MMOL/L (99-107); CREATININE 1.18 MG/DL (0.60-1.10); EOSINOPHILS % (AUTO) 0.5 % (0-6); GLUCOSE 114 MG/DL (70-104); HEMATOCRIT 38.6 % (42.0-52.0); HEMOGLOBIN 12.6 g/dl (14.0-17.9); LYMPHOCYTES # (AUTO) 0.3 X10'3 (1.1-4.8); LYMPHOCYTES % (AUTO) 3.6 % (21-51); MAGNESIUM 1.8 MG/DL (1.5-2.4); MEAN CORPUSCULAR HGB CONC 32.6 g/dL (33.0-36.5); MEAN CORPUSCULAR VOLUME 86.1 FL (78-98); MEAN PLATELET VOLUME 10.6 FL (7.4-10.4); MONOCYTES # (AUTO) 0.5 X10'3 (0-0.9); MONOCYTES % (AUTO) 5.3 % (2-12); NEUTROPHILS # (AUTO) 8.6 X10'3 (1.8-7.7); NEUTROPHILS % (AUTO) 90.1 % (42-75); PLATELET COUNT 136 X10'3 (140-440); POTASSIUM 3.7 MMOL/L (3.5-5.1); RED BLOOD COUNT 4.48 X10'6 (4.70-6.10); RED CELL DISTRIBUTION WIDTH 14.9 % (11.5-14.5); SODIUM 140 MMOL/L (135-145); TOTAL CARBON DIOXIDE 38.2 MMOL/L (24-32); TOTAL PROTEIN 8.3 G/DL (6.4-8.2); WHITE BLOOD COUNT 9.5 X10'3 (4.5-11.0); eGFR 62 ML/MIN
[2019-02-17] MEDS: K and/or MAG REPLACEMENT MC SCH (07:10)
[2019-02-17] MEDS: budesonide 0.5mg/2ml UD nebule IH SCH ×2 (07:13→20:09)
[2019-02-17 07:42] LABS: LARGE PLATELETS FEW; PLATELET ESTIMATE DECREASED
[2019-02-17] MEDS: heparin, porcine 5000 units/ml vial SQ SCH ×2 (08:00→21:35)
[2019-02-17] MEDS: furosemide 40mg/4ml inj IV SCH ×2 (08:54→15:00)
[2019-02-17] MEDS: lactobacillus rhamnosus 10,000 MMU CELLS/CAPSULE PO SCH ×2 (08:54→21:16)
[2019-02-17] MEDS: CefTRIAXone 2gm/D5W 50ml 50 ML IV SCH (08:54)
[2019-02-17] MEDS: pregabalin 75mg capsule PO SCH (08:54)
[2019-02-17] MEDS: pantoprazole 40mg Tablet.DR PO SCH (08:54)
[2019-02-17] MEDS: ketoconazole 2% cream 15gm TP SCH (08:56)
[2019-02-17] MEDS: vitamin D (cholecalciferol) 1,000 unit tablet PO SCH (08:56)
[2019-02-17] MEDS: diltiazem CD 180mg cap (once-daily) PO SCH (08:56)
[2019-02-17] MEDS: loratadine 10mg tablet PO SCH (08:56)
[2019-02-17] MEDS: acetaZOLAMIDE 250mg tablet PO SCH ×2 (08:57→21:16)
[2019-02-17 11:00] VITALS: BP 130/76
[2019-02-17] MEDS ORDERED: ketorolac trometh. 30mg/ml inj. IM ONE ×2 (16:35→17:25)
[2019-02-17] MEDS ORDERED: VANCOMYCIN LEVEL IV ONE (18:30)
--- NOTE | 2019-02-17 18:30 | NUR ---
Problems reprioritized. Patient report given, questions answered & plan of care reviewed with Damari Wetzel RN.
--- NOTE | 2019-02-17 18:35 | NUR ---
Patient in room [facility] 355. I have received report from DEVANTE HUSAIN and had the opportunity to ask questions and assume patient care.
--- NOTE | 2019-02-17 19:10 | NUR ---
CALLED PHARMACIST AND TALKED TO ALFIE WAS INFORMED ABOUT CRITICAL VANCO TROUGH 36.4 WITH ISTRUCTIONS TO HOLD 1900 DOSE AND REPEAT VANCO RANDOM AT AM LAB AND HE WILL CHANGE THE DOSE FOR 0500 AND GIVE IF LEVEL IS BELOW 20.
[2019-02-17 20:00] VITALS: BP 151/59
[2019-02-17] MEDS: insulin glargine (Lantus) pen - multi-dose SQ SCH (21:00)
[2019-02-17] MEDS: ketorolac trometh. 30mg/ml inj. IV SCH (21:16)
[2019-02-18] VITALS: BP 125/71
[2019-02-18] MEDS: ketorolac trometh. 30mg/ml inj. IV SCH ×3 (02:00→13:50)
[2019-02-18] MEDS: ipratropium/albuterol 3ml nebule NEB SCH ×6 (03:00→23:18)
[2019-02-18] MEDS: oxyCODONE IR 5mg (immed. release) tablet PO PRN ×3 (03:16→22:30)
[2019-02-18] MEDS ORDERED: vancomycin/NS 1 GM ADD-VANTAGE 250 ML IV SCH (05:00)
--- NOTE | 2019-02-18 06:15 | NUR ---
Patient in room [facility] 355. I have received report from Damari Wetzel RN and had the opportunity to ask questions and assume patient care.
[2019-02-18 06:16] LABS: BASOPHILS % (AUTO) 0.2 % (0-1); EOSINOPHILS # (AUTO) 0.2 X10'3 (0-0.9); EOSINOPHILS % (AUTO) 2.6 % (0-6); HEMATOCRIT 37.6 % (42.0-52.0); LYMPHOCYTES # (AUTO) 0.6 X10'3 (1.1-4.8); LYMPHOCYTES % (AUTO) 6.4 % (21-51); MEAN CORPUSCULAR HEMOGLOBIN 27.7 PG (27.0-31.0); MEAN CORPUSCULAR HGB CONC 31.9 g/dL (33.0-36.5); MEAN PLATELET VOLUME 10.8 FL (7.4-10.4); MONOCYTES # (AUTO) 0.7 X10'3 (0-0.9); MONOCYTES % (AUTO) 8.1 % (2-12); NEUTROPHILS # (AUTO) 7.2 X10'3 (1.8-7.7); NEUTROPHILS % (AUTO) 82.7 % (42-75); PLATELET COUNT 126 X10'3 (140-440); RED BLOOD COUNT 4.32 X10'6 (4.70-6.10); RED CELL DISTRIBUTION WIDTH 14.5 % (11.5-14.5); WHITE BLOOD COUNT 8.7 X10'3 (4.5-11.0)
[2019-02-18 06:20] LABS: ALANINE AMINOTRANSFERASE 28 U/L (12-78); ALBUMIN 3.3 G/DL (3.4-5.0); ALBUMIN/GLOBULIN RATIO 0.7 (1.1-1.5); ALKALINE PHOSPHATASE 145 IU/L (46-116); ANION GAP 5 (8-16); ASPARTATE AMINO TRANSFERASE 42 U/L (10-37); BILIRUBIN,TOTAL 0.7 MG/DL (0.1-1.0); BLOOD UREA NITROGEN 59 MG/DL (7-18); BUN/CREATININE RATIO 43.7 (5.4-32.0); CALCIUM 9.5 MG/DL (8.5-10.1); CHLORIDE 95 MMOL/L (99-107); CREATININE 1.35 MG/DL (0.60-1.10); GLUCOSE 134 MG/DL (70-104); POTASSIUM 3.6 MMOL/L (3.5-5.1); SODIUM 137 MMOL/L (135-145); TOTAL CARBON DIOXIDE 36.9 MMOL/L (24-32); VANCOMYCIN,RANDOM 23.2 UG/ML; eGFR 53 ML/MIN
[2019-02-18 06:30] VITALS: BP 129/72
--- NOTE | 2019-02-18 06:30 | NUR ---
Problems reprioritized. Patient report given, questions answered & plan of care reviewed with DEVANTE RN.
[2019-02-18] MEDS: K and/or MAG REPLACEMENT MC SCH (06:44)
[2019-02-18] MEDS: heparin, porcine 5000 units/ml vial SQ SCH ×2 (06:44→20:00)
[2019-02-18] MEDS: ketoconazole 2% cream 15gm TP SCH (06:45)
[2019-02-18] MEDS: budesonide 0.5mg/2ml UD nebule IH SCH ×2 (07:37→19:05)
[2019-02-18] MEDS ORDERED: metolazone 2.5mg tablet PO SCH (08:00)
[2019-02-18] MEDS: CefTRIAXone 2gm/D5W 50ml 50 ML IV SCH (08:13)
[2019-02-18] MEDS: furosemide 40mg/4ml inj IV SCH ×2 (08:13→15:55)
[2019-02-18] MEDS: diltiazem CD 180mg cap (once-daily) PO SCH (08:14)
[2019-02-18] MEDS: lactobacillus rhamnosus 10,000 MMU CELLS/CAPSULE PO SCH ×2 (08:14→21:14)
[2019-02-18] MEDS: loratadine 10mg tablet PO SCH (08:14)
[2019-02-18] MEDS: pregabalin 75mg capsule PO SCH (08:14)
[2019-02-18] MEDS: vitamin D (cholecalciferol) 1,000 unit tablet PO SCH (08:14)
[2019-02-18] MEDS: pantoprazole 40mg Tablet.DR PO SCH (08:15)
[2019-02-18] MEDS: acetaZOLAMIDE 250mg tablet PO SCH ×2 (08:15→21:14)
[2019-02-18 09:01] LABS: LARGE PLATELETS FEW; PLATELET ESTIMATE DECREASED
[2019-02-18 11:00] VITALS: BP 158/65
[2019-02-18] MEDS ORDERED: predniSONE 20 mg tablet PO ONE (17:55)
[2019-02-18 18:00] VITALS: BP 140/68
--- NOTE | 2019-02-18 18:00 | NUR ---
Received report from Leila HUSAIN and assumed plan of care. Patient resting comfortably.
--- NOTE | 2019-02-18 18:25 | NUR ---
Problems reprioritized. Patient report given, questions answered & plan of care reviewed with RODRIGUE Espinal.
--- NOTE | 2019-02-18 18:30 | NUR ---
Patient in room [facility] 355. I have received report from DEVANTE and had the opportunity to ask questions and assume patient care. ASSUMED CARE OF PT WITH RN STUDENT PATTY Schafer
[2019-02-18] MEDS: insulin glargine (Lantus) pen - multi-dose SQ SCH (21:00)
[2019-02-19] VITALS: BP 131/78
--- NOTE | 2019-02-19 00:41 | NUR ---
PATIENT BLIND IN LEFT EYE. Addendum: 02/19/19 at 0151 by Emily POLLACK Amended: Links added.
[2019-02-19] MEDS: ipratropium/albuterol 3ml nebule NEB SCH ×6 (03:00→23:44)
--- NOTE | 2019-02-19 03:27 | NUR ---
Student documentation: I have reviewed and agree with all interventions, assessments performed and documented by PATTY Schafer Student Medication Administration: For this medication-pass time frame, all medication were reviewed, dispensed, administered and documented per hospital policy by PATTY Schafer
[2019-02-19] MEDS: oxyCODONE IR 5mg (immed. release) tablet PO PRN ×4 (03:58→19:37)
--- NOTE | 2019-02-19 06:10 | NUR ---
Patient in room [facility]. I have received report from RODRIGUE Espinal and had the opportunity to ask questions and assume patient care.
[2019-02-19 06:30] VITALS: BP 119/50
[2019-02-19 06:34] LABS: BASOPHILS % (AUTO) 0.1 % (0-1); EOSINOPHILS % (AUTO) 0.1 % (0-6); HEMATOCRIT 35.7 % (42.0-52.0); HEMOGLOBIN 11.5 g/dl (14.0-17.9); LYMPHOCYTES # (AUTO) 0.2 X10'3 (1.1-4.8); LYMPHOCYTES % (AUTO) 2.5 % (21-51); MEAN CORPUSCULAR HEMOGLOBIN 28.1 PG (27.0-31.0); MEAN CORPUSCULAR HGB CONC 32.3 g/dL (33.0-36.5); MEAN CORPUSCULAR VOLUME 87.2 FL (78-98); MEAN PLATELET VOLUME 11.1 FL (7.4-10.4); MONOCYTES # (AUTO) 0.3 X10'3 (0-0.9); MONOCYTES % (AUTO) 3.3 % (2-12); NEUTROPHILS # (AUTO) 8.2 X10'3 (1.8-7.7); PLATELET COUNT 141 X10'3 (140-440); RED BLOOD COUNT 4.09 X10'6 (4.70-6.10); RED CELL DISTRIBUTION WIDTH 14.5 % (11.5-14.5); WHITE BLOOD COUNT 8.8 X10'3 (4.5-11.0)
--- NOTE | 2019-02-19 06:38 | NUR ---
Problems reprioritized. Patient report given, questions answered & plan of care reviewed with DEVANTE.
[2019-02-19 06:45] LABS: ALANINE AMINOTRANSFERASE 32 U/L (12-78); ALBUMIN 3.2 G/DL (3.4-5.0); ALBUMIN/GLOBULIN RATIO 0.7 (1.1-1.5); ALKALINE PHOSPHATASE 161 IU/L (46-116); ANION GAP 6 (8-16); ASPARTATE AMINO TRANSFERASE 47 U/L (10-37); BILIRUBIN,TOTAL 0.6 MG/DL (0.1-1.0); BLOOD UREA NITROGEN 52 MG/DL (7-18); CALCIUM 9.6 MG/DL (8.5-10.1); CHLORIDE 96 MMOL/L (99-107); CREATININE 1.13 MG/DL (0.60-1.10); GLUCOSE 163 MG/DL (70-104); POTASSIUM 3.5 MMOL/L (3.5-5.1); SODIUM 140 MMOL/L (135-145); TOTAL CARBON DIOXIDE 37.9 MMOL/L (24-32); eGFR 65 ML/MIN
[2019-02-19] MEDS: heparin, porcine 5000 units/ml vial SQ SCH ×2 (06:50→20:00)
[2019-02-19] MEDS: K and/or MAG REPLACEMENT MC SCH (06:50)
[2019-02-19] MEDS: pregabalin 75mg capsule PO SCH (06:51)
[2019-02-19] MEDS: ketoconazole 2% cream 15gm TP SCH (06:51)
[2019-02-19] MEDS: budesonide 0.5mg/2ml UD nebule IH SCH ×2 (07:23→19:57)
[2019-02-19] MEDS: pantoprazole 40mg Tablet.DR PO SCH (08:00)
[2019-02-19] MEDS: lactobacillus rhamnosus 10,000 MMU CELLS/CAPSULE PO SCH ×2 (08:00→19:34)
[2019-02-19] MEDS: CefTRIAXone 2gm/D5W 50ml 50 ML IV SCH (08:00)
[2019-02-19] MEDS: diltiazem CD 180mg cap (once-daily) PO SCH (08:01)
[2019-02-19] MEDS: vitamin D (cholecalciferol) 1,000 unit tablet PO SCH (08:01)
[2019-02-19] MEDS: acetaZOLAMIDE 250mg tablet PO SCH ×2 (08:01→19:34)
[2019-02-19] MEDS: predniSONE 20 mg tablet PO SCH (08:01)
[2019-02-19] MEDS: loratadine 10mg tablet PO SCH (08:01)
[2019-02-19] MEDS: furosemide 40mg/4ml inj IV SCH (08:02)
[2019-02-19 10:21] LABS: LARGE PLATELETS FEW; PLATELET ESTIMATE NORMAL
[2019-02-19 11:00] VITALS: BP 133/57
[2019-02-19] MEDS: magnesium hydroxide 30ml (MOM) UD suspension PO PRN (11:06)
[2019-02-19] MEDS: insulin Lispro (HumaLOG) vial - multi-dose SQ SCH ×2 (13:38→19:50)
[2019-02-19 18:00] VITALS: BP 126/54
--- NOTE | 2019-02-19 18:10 | NUR ---
Problems reprioritized. Patient report given, questions answered & plan of care reviewed with Susannah Malik RN.
--- NOTE | 2019-02-19 18:30 | NUR ---
Patient in room [facility] 355. I have received report from RODRIGUE Dee and had the opportunity to ask questions and assume patient care.
--- NOTE | 2019-02-19 19:30 | NUR ---
Pt declined Heparin 5000 unit during night medication administration. Educated pt the risks and benefits of Heparin. Pt states that he does not want Heparin.
[2019-02-19] MEDS ORDERED: VANCOMYCIN LEVEL IV ONE (20:30)
[2019-02-19] MEDS: insulin glargine (Lantus) pen - multi-dose SQ SCH (21:07)
[2019-02-19 23:26] VITALS: BP 127/78
[2019-02-20] MEDS: oxyCODONE IR 5mg (immed. release) tablet PO PRN ×5 (00:15→19:52)
[2019-02-20] MEDS: ipratropium/albuterol 3ml nebule NEB SCH ×5 (02:45→20:22)
[2019-02-20] MEDS: magnesium hydroxide 30ml (MOM) UD suspension PO PRN (04:35)
[2019-02-20 05:00] LABS: BASOPHILS % (AUTO) 0.2 % (0-1); EOSINOPHILS # (AUTO) 0.1 X10'3 (0-0.9); EOSINOPHILS % (AUTO) 0.8 % (0-6); HEMATOCRIT 36.5 % (42.0-52.0); HEMOGLOBIN 11.7 g/dl (14.0-17.9); LYMPHOCYTES # (AUTO) 0.7 X10'3 (1.1-4.8); LYMPHOCYTES % (AUTO) 8.4 % (21-51); MEAN CORPUSCULAR HGB CONC 32.1 g/dL (33.0-36.5); MEAN CORPUSCULAR VOLUME 87.2 FL (78-98); MEAN PLATELET VOLUME 10.4 FL (7.4-10.4); MONOCYTES # (AUTO) 0.9 X10'3 (0-0.9); MONOCYTES % (AUTO) 10.5 % (2-12); NEUTROPHILS # (AUTO) 6.6 X10'3 (1.8-7.7); NEUTROPHILS % (AUTO) 80.1 % (42-75); PLATELET COUNT 161 X10'3 (140-440); RED BLOOD COUNT 4.19 X10'6 (4.70-6.10); RED CELL DISTRIBUTION WIDTH 14.7 % (11.5-14.5); WHITE BLOOD COUNT 8.2 X10'3 (4.5-11.0)
[2019-02-20 05:15] LABS: ALANINE AMINOTRANSFERASE 34 U/L (12-78); ALBUMIN 3.2 G/DL (3.4-5.0); ALBUMIN/GLOBULIN RATIO 0.7 (1.1-1.5); ALKALINE PHOSPHATASE 166 IU/L (46-116); ANION GAP 5 (8-16); ASPARTATE AMINO TRANSFERASE 40 U/L (10-37); BILIRUBIN,TOTAL 0.5 MG/DL (0.1-1.0); BLOOD UREA NITROGEN 41 MG/DL (7-18); BUN/CREATININE RATIO 34.5 (5.4-32.0); CALCIUM 9.7 MG/DL (8.5-10.1); CHLORIDE 98 MMOL/L (99-107); CREATININE 1.19 MG/DL (0.60-1.10); GLUCOSE 150 MG/DL (70-104); POTASSIUM 3.7 MMOL/L (3.5-5.1); SODIUM 141 MMOL/L (135-145); TOTAL CARBON DIOXIDE 38.4 MMOL/L (24-32); eGFR 61 ML/MIN
--- NOTE | 2019-02-20 06:29 | NUR ---
Problems reprioritized. Patient report given, questions answered & plan of care reviewed with RODRIGUE Arias.
--- NOTE | 2019-02-20 06:30 | NUR ---
Patient in room [facility] 355. I have received report from Bri HUSAIN and had the opportunity to ask questions and assume patient care. Patient resting eyes closed respirations even, will continue to monitor.
[2019-02-20] MEDS: K and/or MAG REPLACEMENT MC SCH (06:42)
[2019-02-20] MEDS: budesonide 0.5mg/2ml UD nebule IH SCH ×2 (07:04→20:22)
[2019-02-20 07:19] VITALS: BP 125/55
[2019-02-20 07:40] VITALS: BP 127/55
--- NOTE | 2019-02-20 07:40 | NUR ---
Received call from tele that the patient had a 5 beat run of v-tach. Resting eyes closed respirations even. Vitals T-97.1, HR 64 BP-127/57 O2 saturation 90 on 3 L/min. Sent page to Dr. Arteaga, awaiting reply. Will continue to monitor.
[2019-02-20] MEDS: diltiazem CD 180mg cap (once-daily) PO SCH (08:00)
[2019-02-20] MEDS: heparin, porcine 5000 units/ml vial SQ SCH (08:00)
[2019-02-20] MEDS: CefTRIAXone 2gm/D5W 50ml 50 ML IV SCH (08:19)
[2019-02-20] MEDS: lactobacillus rhamnosus 10,000 MMU CELLS/CAPSULE PO SCH ×2 (08:25→19:41)
[2019-02-20] MEDS: pantoprazole 40mg Tablet.DR PO SCH (08:26)
[2019-02-20] MEDS: vitamin D (cholecalciferol) 1,000 unit tablet PO SCH (08:26)
[2019-02-20] MEDS: loratadine 10mg tablet PO SCH (08:29)
[2019-02-20] MEDS: acetaZOLAMIDE 250mg tablet PO SCH ×2 (08:30→19:41)
[2019-02-20] MEDS: pregabalin 75mg capsule PO SCH (08:30)
[2019-02-20] MEDS: predniSONE 20 mg tablet PO SCH (08:30)
[2019-02-20] MEDS: furosemide 40mg/4ml inj IV SCH (08:31)
[2019-02-20] MEDS: insulin Lispro (HumaLOG) vial - multi-dose SQ SCH ×3 (08:48→20:29)
[2019-02-20] MEDS: ketoconazole 2% cream 15gm TP SCH (08:55)
--- NOTE | 2019-02-20 09:00 | NUR ---
Saw Dr. Arteaga in [place] and notified of the 5 beat run of v-tach, states will see patient soon. Will continue to monitor.
--- NOTE | 2019-02-20 10:00 | NUR ---
Patient refused PT despite multiple attempts, will continue to monitor.
--- NOTE | 2019-02-20 11:30 | NUR ---
Patient refused vitals despite education. Will try again and continue to monitor.
[2019-02-20 13:42] VITALS: BP 146/75
--- NOTE | 2019-02-20 14:24 | NUR ---
reassessment: Pt PO 100% meals meeting needs. LBM 02/14 per EMR; KHOA d/w RN regarding routine bowel care per MD approval given constipation. Will continue to monitor. Recommendations: 1) Continue CHO controlled diet 2) routine bowel care 3) Wt per rx Addendum: 02/20/19 at [address] Amended: Links added.
[2019-02-20] MEDS ORDERED: bisacodyl 10mg suppository rectal RC PRN (15:50)
[2019-02-20] MEDS ORDERED: polyethylene glycol 3350 17gm powd pack PO PRN (15:50)
--- NOTE | 2019-02-20 15:52 | NUR ---
notified Dr. Arteaga that patient has not had BM since 02/16, received MOM 02/19 & today. Received orders for colace 100 mg BID, dulcolax suppository & miralax PRN. Also received orders to DC ketoconazole and heparin due to patient not taking. Will continue to monitor.
--- NOTE | 2019-02-20 16:57 | NUR ---
Patient refused walking for the third time, educated on importance of walking. States No. Will continue to monitor.
[2019-02-20 18:00] VITALS: BP 149/93
--- NOTE | 2019-02-20 18:47 | NUR ---
Problems reprioritized. Patient report given, questions answered & plan of care reviewed with Susannah Clark RN. In restroom attempting to have BM.
--- NOTE | 2019-02-20 19:04 | NUR ---
Patient in bathroom attempting to have BM. Small success so far. Refusing suppository at this time, states "I just want to have BM naturally". Pt squatting over toilet refusing to sit. Portable O2 was connected to pt but canister empty. Replaced canister. Pt 97% on 3L. Pt refusing to get back to bed for suppository. Will continue to monitor and encourage suppository.
--- NOTE | 2019-02-20 19:08 | NUR ---
Unable to fully assess patient at this time, will allow pt time in the restroom prior to covering carbs, dinner tray remains untouched at this time.
--- NOTE | 2019-02-20 19:27 | NUR ---
Patient refusing meds at this time. Attempted to explain I had a stool softener which may assist. Patient cut me off mid sentence stating "NO, I dont want anything right now". After coaxing pt to listen and hear what I had to say, explained benefits of colace. Pt still continued to refuse stating "bring back later". Patient having some success with BM.
[2019-02-20] MEDS: docusate sod 100mg capsule PO SCH (19:42)
[2019-02-20] MEDS: insulin glargine (Lantus) pen - multi-dose SQ SCH (22:53)
[2019-02-21] VITALS: BP 150/81
[2019-02-21] MEDS: oxyCODONE IR 5mg (immed. release) tablet PO PRN ×3 (02:05→13:57)
[2019-02-21] MEDS: ipratropium/albuterol 3ml nebule NEB SCH ×5 (03:00→14:55)
[2019-02-21 05:00] LABS: BASOPHILS # (AUTO) 0.1 X10'3 (0-0.2); BASOPHILS % (AUTO) 0.5 % (0-1); EOSINOPHILS # (AUTO) 0.1 X10'3 (0-0.9); EOSINOPHILS % (AUTO) 0.9 % (0-6); HEMATOCRIT 39.1 % (42.0-52.0); HEMOGLOBIN 12.4 g/dl (14.0-17.9); LYMPHOCYTES # (AUTO) 0.8 X10'3 (1.1-4.8); LYMPHOCYTES % (AUTO) 8.4 % (21-51); MEAN CORPUSCULAR HEMOGLOBIN 27.6 PG (27.0-31.0); MEAN CORPUSCULAR HGB CONC 31.7 g/dL (33.0-36.5); MEAN CORPUSCULAR VOLUME 87.2 FL (78-98); MONOCYTES # (AUTO) 0.9 X10'3 (0-0.9); MONOCYTES % (AUTO) 9.3 % (2-12); NEUTROPHILS # (AUTO) 7.9 X10'3 (1.8-7.7); NEUTROPHILS % (AUTO) 80.9 % (42-75); PLATELET COUNT 167 X10'3 (140-440); RED BLOOD COUNT 4.48 X10'6 (4.70-6.10); RED CELL DISTRIBUTION WIDTH 14.6 % (11.5-14.5); WHITE BLOOD COUNT 9.8 X10'3 (4.5-11.0)
[2019-02-21 05:24] LABS: ALANINE AMINOTRANSFERASE 48 U/L (12-78); ALBUMIN 3.2 G/DL (3.4-5.0); ALBUMIN/GLOBULIN RATIO 0.7 (1.1-1.5); ALKALINE PHOSPHATASE 183 IU/L (46-116); ANION GAP 4 (8-16); ASPARTATE AMINO TRANSFERASE 45 U/L (10-37); BILIRUBIN,TOTAL 0.5 MG/DL (0.1-1.0); BLOOD UREA NITROGEN 41 MG/DL (7-18); BUN/CREATININE RATIO 48.8 (5.4-32.0); CALCIUM 9.7 MG/DL (8.5-10.1); CHLORIDE 100 MMOL/L (99-107); CREATININE 0.84 MG/DL (0.60-1.10); GLUCOSE 116 MG/DL (70-104); POTASSIUM 3.5 MMOL/L (3.5-5.1); SODIUM 143 MMOL/L (135-145); TOTAL CARBON DIOXIDE 39.1 MMOL/L (24-32); TOTAL PROTEIN 8.1 G/DL (6.4-8.2); eGFR > 90 ML/MIN
--- NOTE | 2019-02-21 06:04 | NUR ---
Problems reprioritized. Patient report given, questions answered & plan of care reviewed with RODRIGUE Arias.
--- NOTE | 2019-02-21 06:05 | NUR ---
Patient in room [facility]. I have received report from Susannah Clark RN and had the opportunity to ask questions and assume patient care. Patient resting eyes closed respirations even.
[2019-02-21 07:28] VITALS: BP 162/82
[2019-02-21] MEDS ORDERED: furosemide 40mg tablet PO SCH (08:00)
[2019-02-21] MEDS: K and/or MAG REPLACEMENT MC SCH (08:00)
[2019-02-21] MEDS: pregabalin 75mg capsule PO SCH (08:00)
[2019-02-21] MEDS: insulin Lispro (HumaLOG) vial - multi-dose SQ SCH ×2 (08:44→13:51)
[2019-02-21] MEDS: CefTRIAXone 2gm/D5W 50ml 50 ML IV SCH (08:44)
[2019-02-21] MEDS: predniSONE 20 mg tablet PO SCH (08:54)
[2019-02-21] MEDS: lactobacillus rhamnosus 10,000 MMU CELLS/CAPSULE PO SCH (08:54)
[2019-02-21] MEDS: docusate sod 100mg capsule PO SCH (08:55)
[2019-02-21] MEDS: loratadine 10mg tablet PO SCH (08:56)
[2019-02-21] MEDS: pantoprazole 40mg Tablet.DR PO SCH (08:57)
[2019-02-21] MEDS: vitamin D (cholecalciferol) 1,000 unit tablet PO SCH (08:57)
[2019-02-21] MEDS: diltiazem CD 180mg cap (once-daily) PO SCH (08:57)
[2019-02-21] MEDS: acetaZOLAMIDE 250mg tablet PO SCH (08:58)
--- NOTE | 2019-02-21 10:00 | NUR ---
Patient refused walking due to tired and stating he has not slept all night. Will continue to monitor.
[2019-02-21] MEDS: budesonide 0.5mg/2ml UD nebule IH SCH (10:25)
[2019-02-21 11:00] VITALS: BP 121/70
--- NOTE | 2019-02-21 17:26 | NUR ---
Called report to Shahla CHAUDHARY 2 at [facility], provided opportunity for questions. Denied further inquiry. Patient's belongings being gathered. Last blood sugar was at 1700 at 185, Shahla stated they will treat when he gets there as well as with pain medications.
[2019-02-21 17:36] VITALS: BP 146/73
--- NOTE | 2019-02-21 17:54 | NUR ---
Patient's tele and IV removed with cannula intact for anticipated transfer to [facility]. Will continue to monitor.
--- NOTE | 2019-02-21 18:10 | NUR ---
Transport here to take patient, oxygen NC at 2 L/min, in own clothing, finished most of dinner, patient's belongings gathered and provided to transport to go with him.
--- NOTE | 2019-02-21 18:20 | NUR ---
Patient on [place] with oxygen running with nasal cannula.
[2019-02-22] MEDS ORDERED: cefpodoxime proxetil 100mg tablet PO SCH (08:30)
== END 2019-02-21 18:12 | DRG 602 ==
LOC: ER 17:09 → SUR 3N 21:53 → CMPBEDREQ 02-12 19:33
PROVIDERS: ADMIT Hospitalist; ATTEND Hospitalist
PROC: BQ2D1ZZ Computerized Tomography (CT Scan) of Right Lower Leg using Low Osmolar Contrast (ICD-10-PCS; principal; 2019-02-16)
DX: L03.115 Cellulitis of right lower limb (principal); I50.33 Acute on chronic diastolic (congestive) heart failure; N17.0 Acute kidney failure with tubular necrosis; J96.01 Acute respiratory failure with hypoxia; E87.3 Alkalosis; L03.116 Cellulitis of left lower limb; E11.42 Type 2 diabetes mellitus with diabetic polyneuropathy; E78.00 Pure hypercholesterolemia, unspecified; G47.30 Sleep apnea, unspecified; G89.4 Chronic pain syndrome; I11.0 Hypertensive heart disease with heart failure; B19.20 Unspecified viral hepatitis C without hepatic coma; M54.9 Dorsalgia, unspecified; I87.2 Venous insufficiency (chronic) (peripheral); I27.20 Pulmonary hypertension, unspecified; I48.91 Unspecified atrial fibrillation; J44.9 Chronic obstructive pulmonary disease, unspecified; K21.9 Gastro-esophageal reflux disease without esophagitis; M10.9 Gout, unspecified; T50.2X5A Adverse effect of carbonic-anhydrase inhibitors, benzothiadiazides and other diuretics, initial encounter; Z79.891 Long term (current) use of opiate analgesic; Z86.14 Personal history of Methicillin resistant Staphylococcus aureus infection; Z87.11 Personal history of peptic ulcer disease; Z88.5 Allergy status to narcotic agent; Z79.899 Other long term (current) drug therapy; Z79.4 Long term (current) use of insulin; Y92.238 Other place in hospital as the place of occurrence of the external cause
CPT/HCPCS: 36415; 71045; 73630; 73701; 80048; 80053; 80202; 82948; 83036; 83735; 83880; 84550; 85025; 87081; 93306; 93971; 94640; 94760; 96365; 96375; 97112; 97116; 97162; 97530; 99285; G0378; J0696; J1644; J1815; J1885; J1940; J2270; J2405; J2543; J3370; J7512; J7626; Q9967

== ENCOUNTER 2019-03-22 17:23 | Emergency (ER) | payer MEDICARE, MEDICAID ==
[~2019-03-22] VITALS: Ht 180.3 cm; Wt 115.0 kg
[~2019-03-22 17:23] MED LIST changes: +ALBU18HF2 PO; -BACDS PO; -CARI350T PO; -CEPH500C5 PO; +CHOL50004 PO; -COU5T PO; +DILT180C53 PO; -DOL10T PO; -ESOM40CA PO; -HYDR-4383 PO; -HYDR50TA65 PO; +IPRA3AMP31 INH; +IRBE150T27 PO; -IRBE75TA30 PO; +KETO15CR2 TOP; +LYR75C PO; +OMEP40CA13 PO; -ONDA4TAB6 PO; +OXYC15TA88 PO; -OXYC30TA85 PO; +POTA10CA44 PO; +UMEC62.5 PO
[2019-03-22] MEDS ORDERED: normal saline 1000ML IV soln IV ONE (18:10)
[2019-03-22 18:59] LABS: BASOPHILS # (AUTO) 0.1 X10'3 (0-0.2); BASOPHILS % (AUTO) 0.8 % (0-1); EOSINOPHILS # (AUTO) 0.2 X10'3 (0-0.9); EOSINOPHILS % (AUTO) 2.3 % (0-6); HEMATOCRIT 36.9 % (42.0-52.0); LYMPHOCYTES # (AUTO) 0.7 X10'3 (1.1-4.8); LYMPHOCYTES % (AUTO) 9.5 % (21-51); MEAN CORPUSCULAR HEMOGLOBIN 27.6 PG (27.0-31.0); MEAN CORPUSCULAR HGB CONC 32.5 g/dL (33.0-36.5); MEAN CORPUSCULAR VOLUME 84.8 FL (78-98); MEAN PLATELET VOLUME 9.9 FL (7.4-10.4); MONOCYTES # (AUTO) 0.6 X10'3 (0-0.9); NEUTROPHILS # (AUTO) 5.9 X10'3 (1.8-7.7); NEUTROPHILS % (AUTO) 79.4 % (42-75); PLATELET COUNT 193 X10'3 (140-440); RED BLOOD COUNT 4.35 X10'6 (4.70-6.10); RED CELL DISTRIBUTION WIDTH 15.1 % (11.5-14.5); WHITE BLOOD COUNT 7.4 X10'3 (4.5-11.0)
[2019-03-22 19:09] LABS: ALANINE AMINOTRANSFERASE 24 U/L (12-78); ALBUMIN 3.2 G/DL (3.4-5.0); ALBUMIN/GLOBULIN RATIO 0.7 (1.1-1.5); ALKALINE PHOSPHATASE 188 IU/L (46-116); ANION GAP 3 (8-16); ASPARTATE AMINO TRANSFERASE 30 U/L (10-37); BILIRUBIN,TOTAL 0.9 MG/DL (0.1-1.0); BLOOD UREA NITROGEN 18 MG/DL (7-18); BUN/CREATININE RATIO 17.6 (5.4-32.0); CALCIUM 8.8 MG/DL (8.5-10.1); CHLORIDE 98 MMOL/L (99-107); CREATININE 1.02 MG/DL (0.60-1.10); GLUCOSE 145 MG/DL (70-104); SODIUM 140 MMOL/L (135-145); TOTAL CARBON DIOXIDE 38.8 MMOL/L (24-32); eGFR 73 ML/MIN
[2019-03-22] MEDS ORDERED: DOXY100C43 PO (19:18)
[2019-03-22] MEDS ORDERED: CEPH250T PO (19:18)
[2019-03-22] MEDS ORDERED: CefTRIAXone/D5W-Rocephin 1gm 50 ML IV ONE (19:20)
[2019-03-22] MEDS ORDERED: furosemide 10 MG/1 ML 10ml inj IV ONE (19:20)
[2019-03-22] MEDS ORDERED: HYDROcodone/acetaminophen 10/325mg tab PO ONE (19:20)
[2019-03-22] MEDS ORDERED: morphine 2 MG/ML inj. syringe IV ONE (20:30)
[2019-03-22 20:46] VITALS: BP 149/84
== END 2019-03-22 21:00 | disposition home or self-care (01) ==
LOC: ER 17:23
DX: L03.116 Cellulitis of left lower limb (principal); L03.115 Cellulitis of right lower limb; I48.91 Unspecified atrial fibrillation; E78.00 Pure hypercholesterolemia, unspecified; J44.9 Chronic obstructive pulmonary disease, unspecified; K21.9 Gastro-esophageal reflux disease without esophagitis; G89.29 Other chronic pain; I11.0 Hypertensive heart disease with heart failure; I50.9 Heart failure, unspecified; E11.42 Type 2 diabetes mellitus with diabetic polyneuropathy; Z87.11 Personal history of peptic ulcer disease; Z56.0 Unemployment, unspecified; Z98.890 Other specified postprocedural states; Z86.14 Personal history of Methicillin resistant Staphylococcus aureus infection; Z88.5 Allergy status to narcotic agent; Z79.4 Long term (current) use of insulin; Z79.899 Other long term (current) drug therapy
CPT/HCPCS: 36415; 71045; 80053; 83605; 84145; 85025; 87040; 93005; 93970; 96365; 96375; 99284; J0696; J1940; J2270; J7030; J7040

== ENCOUNTER 2019-03-28 00:23 | Inpatient (IN) | payer MEDICARE, MEDICAID ==
[~2019-03-28] VITALS: Ht 180.3 cm; Wt 115.0 kg
[~2019-03-28 00:23] MED LIST changes: +CEPH250T PO; +DOXY100C43 PO
[2019-03-28 00:53] LABS: BASOPHILS # (AUTO) 0.1 X10'3 (0-0.2); BASOPHILS % (AUTO) 0.8 % (0-1); EOSINOPHILS # (AUTO) 0.3 X10'3 (0-0.9); EOSINOPHILS % (AUTO) 3.8 % (0-6); HEMATOCRIT 36.1 % (42.0-52.0); HEMOGLOBIN 11.6 g/dl (14.0-17.9); LYMPHOCYTES # (AUTO) 0.8 X10'3 (1.1-4.8); LYMPHOCYTES % (AUTO) 11.4 % (21-51); MEAN CORPUSCULAR HGB CONC 32.3 g/dL (33.0-36.5); MEAN CORPUSCULAR VOLUME 83.7 FL (78-98); MEAN PLATELET VOLUME 9.8 FL (7.4-10.4); MONOCYTES # (AUTO) 0.6 X10'3 (0-0.9); NEUTROPHILS # (AUTO) 5.3 X10'3 (1.8-7.7); PLATELET COUNT 195 X10'3 (140-440); RED BLOOD COUNT 4.31 X10'6 (4.70-6.10); RED CELL DISTRIBUTION WIDTH 15.1 % (11.5-14.5); WHITE BLOOD COUNT 7.1 X10'3 (4.5-11.0)
[2019-03-28] MEDS ORDERED: morphine 4 MG/ML inj SYRINge IV ONE (00:55)
[2019-03-28 01:05] LABS: PARTIAL THROMBOPLASTIN TIME 27 SECONDS (22-32)
[2019-03-28 01:08] LABS: ALANINE AMINOTRANSFERASE 26 U/L (12-78); ALBUMIN 2.9 G/DL (3.4-5.0); ALBUMIN/GLOBULIN RATIO 0.6 (1.1-1.5); ALKALINE PHOSPHATASE 169 IU/L (46-116); ANION GAP 2 (8-16); ASPARTATE AMINO TRANSFERASE 34 U/L (10-37); BILIRUBIN,TOTAL 0.7 MG/DL (0.1-1.0); BLOOD UREA NITROGEN 23 MG/DL (7-18); BUN/CREATININE RATIO 20.2 (5.4-32.0); CHLORIDE 98 MMOL/L (99-107); CREATININE 1.14 MG/DL (0.60-1.10); GLUCOSE 163 MG/DL (70-104); POTASSIUM 4.4 MMOL/L (3.5-5.1); SODIUM 138 MMOL/L (135-145); TOTAL CARBON DIOXIDE 37.8 MMOL/L (24-32); TOTAL PROTEIN 7.6 G/DL (6.4-8.2); eGFR 64 ML/MIN
[2019-03-28 01:16] LABS: MAGNESIUM 1.8 MG/DL (1.5-2.4)
[2019-03-28] MEDS ORDERED: furosemide 10 MG/1 ML 10ml inj IV ONE (01:25)
[2019-03-28] MEDS ORDERED: acetaminophen 325mg tablet PO PRN ×2 (02:15)
[2019-03-28] MEDS ORDERED: HYDROcodone/acetaminophen 5mg/325mg tablet PO PRN (02:15)
[2019-03-28] MEDS ORDERED: magnesium 4gm in 100ml NS 100 ML IV PRN (02:15)
[2019-03-28] MEDS ORDERED: potassium Cl 20 mEq SR tablet PO PRN ×2 (02:15)
[2019-03-28] MEDS ORDERED: magnesium 2GM in 50ml NS 50 ML IV PRN (02:15)
[2019-03-28] MEDS ORDERED: potassium CL 10mEq/100ml bag 100 ML IV PRN ×2 (02:15)
[2019-03-28] MEDS ORDERED: morphine 2 MG/ML inj. syringe IV PRN (02:15)
[2019-03-28] MEDS ORDERED: magnesium Cl slow-release 64mg tablet PO PRN (02:15)
[2019-03-28] MEDS ORDERED: mag hydrox/Alum hydrox/simeth 30ml oral suspension PO PRN (02:15)
[2019-03-28] MEDS ORDERED: ondansetron/PF 4mg/2ml inj IV PRN (02:15)
[2019-03-28] MEDS ORDERED: CefTRIAXone/D5W-Rocephin 1gm 50 ML IV ONE (02:20)
[2019-03-28] MEDS: morphine 2 MG/ML inj. syringe IV PRN ×2 (02:31→07:03)
--- NOTE | 2019-03-28 03:00 | NUR ---
Patient in room PCU 3013a. I have received report from RODRIGUE Rockwell in ER and had the opportunity to ask questions and assume patient care.
[2019-03-28 03:10] VITALS: BP 146/74
[2019-03-28] MEDS ORDERED: MESSAGE TO PHARMACY PO ONE (03:20)
[2019-03-28] MEDS ORDERED: nitroGLYCERIN 0.4mg SUBLingual tab SL PRN (03:20)
[2019-03-28] MEDS ORDERED: glucagon, human recombinant 1mg kit SUBCUT PRN (03:20)
[2019-03-28] MEDS ORDERED: dextrose ORAL solution 15 GM/59 ML bottle PO PRN ×2 (03:20)
[2019-03-28] MEDS ORDERED: dextrose 50%-water 50ml dispensing syringe IV PRN ×2 (03:20)
--- NOTE | 2019-03-28 03:51 | NUR ---
Patient arrived to floor via gurney from ER at 0310 and ambulated with assist. Placed on telemetry 50. Patient in atrial fibrillation with rate controlled in 80's. Patient alert and oriented. Disgruntled and tired- refused 2 RN skin check and admission assessment. Patient agreeable to admit interventions in morning. Charge nurse notified. Will continue to monitor closely.
[2019-03-28] MEDS ORDERED: oxyCODONE/APAP 5-325mg tablet PO PRN (05:00)
--- NOTE | 2019-03-28 06:10 | NUR ---
Patient in room PCU 3013. I have received report from Dash HUSAIN and had the opportunity to ask questions and assume patient care.
--- NOTE | 2019-03-28 06:33 | NUR ---
Problems reprioritized. Patient report given, questions answered & plan of care reviewed with RODRIGUE Keller.
[2019-03-28 07:19] VITALS: BP 151/80
[2019-03-28] MEDS: K and/or MAG REPLACEMENT MC SCH (08:00)
[2019-03-28] MEDS: enoxaparin 40mg/0.4ml syringe SQ SCH (08:00)
[2019-03-28] MEDS ORDERED: furosemide 40mg/4ml inj IV SCH (08:00)
[2019-03-28] MEDS: lactobacillus rhamnosus 10,000 MMU CELLS/CAPSULE PO SCH ×2 (08:51→20:24)
[2019-03-28] MEDS ORDERED: IRBE75TA9 PO (09:47)
[2019-03-28 11:00] VITALS: BP 131/69
[2019-03-28] MEDS ORDERED: FLU VACC QS2019-20 36MOS UP/PF 60 MCG/0.5 ML SYRINGE IMVAC ONE (12:35)
[2019-03-28] MEDS ORDERED: pneumococcal 23-VAL P-sac vacc 25 mcg/0.5ml vial IMVAC ONE (12:50)
[2019-03-28] MEDS: oxyCODONE IR 5mg (immed. release) tablet PO PRN ×2 (13:51→20:23)
[2019-03-28] MEDS ORDERED: CefTRIAXone 2gm/D5W 50ml 50 ML IV SCH (14:00)
[2019-03-28 15:00] VITALS: BP_SYST 123; BP_SYST 141; BP_DIAS 69; BP_DIAS 87
[2019-03-28] MEDS: furosemide 40mg/4ml inj IV SCH (16:06)
[2019-03-28] MEDS: ceFAZolin 1GM/D5W- ADD-VANTAGE 50 ML IV SCH (16:07)
--- NOTE | 2019-03-28 18:00 | NUR ---
Problems reprioritized. Patient report given, questions answered & plan of care reviewed with Meño RN.
--- NOTE | 2019-03-28 18:42 | NUR ---
Patient in room PCU 3013. I have received report from Krishna Drake RN and had the opportunity to ask questions and assume patient care.
[2019-03-28 19:00] VITALS: BP 129/71
[2019-03-28] MEDS: insulin glargine (Lantus) pen - multi-dose SQ SCH (21:00)
[2019-03-28 23:00] VITALS: BP 119/78
[2019-03-29] MEDS: ceFAZolin 1GM/D5W- ADD-VANTAGE 50 ML IV SCH ×4 (00:23→23:02)
[2019-03-29] MEDS: morphine 4 MG/ML inj SYRINge IV PRN ×4 (00:24→20:21)
[2019-03-29] MEDS: furosemide 40mg/4ml inj IV SCH ×4 (00:25→23:02)
[2019-03-29 03:00] VITALS: BP 124/59
[2019-03-29] MEDS: oxyCODONE IR 5mg (immed. release) tablet PO PRN ×4 (03:55→23:02)
[2019-03-29 05:36] LABS: BASOPHILS % (AUTO) 0.7 % (0-1); EOSINOPHILS # (AUTO) 0.2 X10'3 (0-0.9); EOSINOPHILS % (AUTO) 3.2 % (0-6); HEMATOCRIT 34.6 % (42.0-52.0); HEMOGLOBIN 11.2 g/dl (14.0-17.9); LYMPHOCYTES # (AUTO) 0.8 X10'3 (1.1-4.8); LYMPHOCYTES % (AUTO) 11.8 % (21-51); MEAN CORPUSCULAR HEMOGLOBIN 27.1 PG (27.0-31.0); MEAN CORPUSCULAR HGB CONC 32.5 g/dL (33.0-36.5); MEAN CORPUSCULAR VOLUME 83.3 FL (78-98); MEAN PLATELET VOLUME 10.1 FL (7.4-10.4); MONOCYTES # (AUTO) 0.6 X10'3 (0-0.9); MONOCYTES % (AUTO) 9.2 % (2-12); NEUTROPHILS % (AUTO) 75.1 % (42-75); PLATELET COUNT 176 X10'3 (140-440); RED BLOOD COUNT 4.15 X10'6 (4.70-6.10); WHITE BLOOD COUNT 6.7 X10'3 (4.5-11.0)
[2019-03-29 05:52] LABS: ALBUMIN 2.7 G/DL (3.4-5.0); ANION GAP 1 (8-16); BLOOD UREA NITROGEN 20 MG/DL (7-18); BUN/CREATININE RATIO 22.2 (5.4-32.0); CALCIUM 8.9 MG/DL (8.5-10.1); CHLORIDE 98 MMOL/L (99-107); GLUCOSE 126 MG/DL (70-104); MAGNESIUM 1.6 MG/DL (1.5-2.4); POTASSIUM 3.8 MMOL/L (3.5-5.1); SODIUM 141 MMOL/L (135-145); eGFR 84 ML/MIN
[2019-03-29 06:00] VITALS: BP 123/67
[2019-03-29 06:00] LABS: TOTAL CARBON DIOXIDE 42.3 MMOL/L (24-32)
--- NOTE | 2019-03-29 06:29 | NUR ---
NOTIFIED PAGER ID: [phone] MESSAGE: Trip Zamorano, [id number]- pt Co2 increased to 42.3 on AM lab draw, pt has been 8-10/10 pain all night and receiving oxy15 and morphine 4mg most of night. pt wants morphine now, holding this med until oked by . Meño HUSAIN Addendum: 03/29/19 at 0636 by Sukhdeep Hyatt RN called back and Oked the morphine dose, advised day time provider to adjust pain control meds and lasix
--- NOTE | 2019-03-29 06:30 | NUR ---
Problems reprioritized. Patient report given, questions answered & plan of care reviewed with Licha Collazo RN.
--- NOTE | 2019-03-29 07:00 | NUR ---
Patient in room PCU 3013. I have received report from RODRIGUE Wilder and had the opportunity to ask questions and assume patient care. Patient is currently resting in bed, bed locked and low, call light in reach. Patient complains of pain, will give pain meds as soon as possible. Will continue to monitor.
[2019-03-29] MEDS: K and/or MAG REPLACEMENT MC SCH (08:00)
[2019-03-29] MEDS: enoxaparin 40mg/0.4ml syringe SQ SCH (08:00)
[2019-03-29] MEDS: lactobacillus rhamnosus 10,000 MMU CELLS/CAPSULE PO SCH ×2 (08:06→20:20)
[2019-03-29 11:00] VITALS: BP 127/59
[2019-03-29] MEDS: gabapentin 300mg capsule PO SCH ×3 (11:58→23:03)
[2019-03-29 15:00] VITALS: BP 143/71
[2019-03-29] MEDS: magnesium hydroxide 30ml (MOM) UD suspension PO PRN (16:43)
--- NOTE | 2019-03-29 17:51 | NUR ---
Student Medication Administration: For this medication-pass time frame, all medication were reviewed, dispensed, administered and documented per hospital policy by FARA Michelle COS.
--- NOTE | 2019-03-29 18:15 | NUR ---
Patient in room PCU 3013. I have received report from Licha HUSAIN and had the opportunity to ask questions and assume patient care. Patient is sleeping soundly, will continue to monitor.
--- NOTE | 2019-03-29 18:19 | NUR ---
Problems reprioritized. Patient report given, questions answered & plan of care reviewed with RODRIGUE Schrader.
[2019-03-29 19:00] VITALS: BP 123/71
[2019-03-29] MEDS: insulin glargine (Lantus) pen - multi-dose SQ SCH (21:00)
[2019-03-29 23:00] VITALS: BP 143/81
[2019-03-30] MEDS: morphine 4 MG/ML inj SYRINge IV PRN ×3 (01:37→21:36)
[2019-03-30 03:00] VITALS: BP 114/56
[2019-03-30] MEDS: oxyCODONE IR 5mg (immed. release) tablet PO PRN ×4 (04:48→23:48)
[2019-03-30 05:49] LABS: BASOPHILS % (AUTO) 0.5 % (0-1); EOSINOPHILS # (AUTO) 0.2 X10'3 (0-0.9); EOSINOPHILS % (AUTO) 3.3 % (0-6); HEMATOCRIT 34.8 % (42.0-52.0); HEMOGLOBIN 11.2 g/dl (14.0-17.9); LYMPHOCYTES # (AUTO) 0.8 X10'3 (1.1-4.8); LYMPHOCYTES % (AUTO) 11.1 % (21-51); MEAN CORPUSCULAR HEMOGLOBIN 27.1 PG (27.0-31.0); MEAN CORPUSCULAR HGB CONC 32.1 g/dL (33.0-36.5); MEAN CORPUSCULAR VOLUME 84.4 FL (78-98); MEAN PLATELET VOLUME 9.8 FL (7.4-10.4); MONOCYTES # (AUTO) 0.7 X10'3 (0-0.9); MONOCYTES % (AUTO) 9.2 % (2-12); NEUTROPHILS # (AUTO) 5.4 X10'3 (1.8-7.7); NEUTROPHILS % (AUTO) 75.9 % (42-75); PLATELET COUNT 190 X10'3 (140-440); RED BLOOD COUNT 4.12 X10'6 (4.70-6.10); RED CELL DISTRIBUTION WIDTH 15.3 % (11.5-14.5); WHITE BLOOD COUNT 7.1 X10'3 (4.5-11.0)
[2019-03-30 05:50] LABS: ALBUMIN 2.9 G/DL (3.4-5.0); BLOOD UREA NITROGEN 20 MG/DL (7-18); BUN/CREATININE RATIO 20.4 (5.4-32.0); CALCIUM 8.9 MG/DL (8.5-10.1); CHLORIDE 99 MMOL/L (99-107); CREATININE 0.98 MG/DL (0.60-1.10); GLUCOSE 97 MG/DL (70-104); MAGNESIUM 1.6 MG/DL (1.5-2.4); POTASSIUM 4.2 MMOL/L (3.5-5.1); SODIUM 144 MMOL/L (135-145); eGFR 77 ML/MIN
[2019-03-30 06:00] VITALS: BP 131/73
--- NOTE | 2019-03-30 06:10 | NUR ---
Patient in room PCU 3013. I have received report from Macrina HUSAIN and had the opportunity to ask questions and assume patient care.
--- NOTE | 2019-03-30 06:15 | NUR ---
Problems reprioritized. Patient report given, questions answered & plan of care reviewed with Krishna HUSAIN.
[2019-03-30 06:28] LABS: ANION GAP 1 (8-16)
[2019-03-30 06:33] LABS: TOTAL CARBON DIOXIDE 43.9 MMOL/L (24-32)
--- NOTE | 2019-03-30 06:48 | NUR ---
PAGER ID: [phone] MESSAGE: Re: Trip Zamorano, Room: [facility]. [id number] Jarvis wang concerning critical Serum 43.9.
[2019-03-30] MEDS: K and/or MAG REPLACEMENT MC SCH (08:00)
[2019-03-30] MEDS: enoxaparin 40mg/0.4ml syringe SQ SCH (08:00)
[2019-03-30] MEDS ORDERED: furosemide 40mg/4ml inj IV SCH (08:00)
[2019-03-30] MEDS: ceFAZolin 1GM/D5W- ADD-VANTAGE 50 ML IV SCH ×3 (08:25→23:44)
[2019-03-30] MEDS: gabapentin 300mg capsule PO SCH ×2 (08:25→16:08)
[2019-03-30] MEDS: lactobacillus rhamnosus 10,000 MMU CELLS/CAPSULE PO SCH ×2 (08:25→19:02)
[2019-03-30 11:00] VITALS: BP 150/76
[2019-03-30] MEDS: magnesium hydroxide 30ml (MOM) UD suspension PO PRN (13:26)
[2019-03-30 15:00] VITALS: BP 137/78
[2019-03-30] MEDS: furosemide 40mg/4ml inj IV SCH ×2 (16:08→23:48)
--- NOTE | 2019-03-30 16:24 | NUR ---
Problems reprioritized. Patient report given, questions answered & plan of care reviewed with Sesar HUSAIN.
--- NOTE | 2019-03-30 18:15 | NUR ---
Patient in room PCU 3013. I have received report from Serene HUSAIN and had the opportunity to ask questions and assume patient care. Patient is resting, he is requesting more morphine. Will continue to monitor.
--- NOTE | 2019-03-30 18:43 | NUR ---
Problems reprioritized. Patient report given, questions answered & plan of care reviewed with Amber HUSAIN.
[2019-03-30 19:00] VITALS: BP 134/75
[2019-03-30] MEDS: insulin glargine (Lantus) pen - multi-dose SQ SCH (21:00)
[2019-03-30 23:00] VITALS: BP 140/69
[2019-03-31] MEDS: morphine 4 MG/ML inj SYRINge IV PRN ×4 (01:39→22:12)
[2019-03-31 03:00] VITALS: BP 138/70
[2019-03-31] MEDS: oxyCODONE IR 5mg (immed. release) tablet PO PRN ×3 (05:00→19:11)
[2019-03-31 05:26] LABS: BASOPHILS % (AUTO) 0.4 % (0-1); EOSINOPHILS # (AUTO) 0.3 X10'3 (0-0.9); EOSINOPHILS % (AUTO) 4.5 % (0-6); HEMOGLOBIN 10.5 g/dl (14.0-17.9); LYMPHOCYTES # (AUTO) 0.7 X10'3 (1.1-4.8); LYMPHOCYTES % (AUTO) 11.7 % (21-51); MEAN CORPUSCULAR HGB CONC 31.9 g/dL (33.0-36.5); MEAN CORPUSCULAR VOLUME 84.8 FL (78-98); MEAN PLATELET VOLUME 9.5 FL (7.4-10.4); MONOCYTES # (AUTO) 0.8 X10'3 (0-0.9); MONOCYTES % (AUTO) 12.1 % (2-12); NEUTROPHILS # (AUTO) 4.5 X10'3 (1.8-7.7); NEUTROPHILS % (AUTO) 71.3 % (42-75); PLATELET COUNT 172 X10'3 (140-440); WHITE BLOOD COUNT 6.4 X10'3 (4.5-11.0)
[2019-03-31 06:00] VITALS: BP 152/92
[2019-03-31 06:10] LABS: ALBUMIN 2.7 G/DL (3.4-5.0); BLOOD UREA NITROGEN 19 MG/DL (7-18); BUN/CREATININE RATIO 21.1 (5.4-32.0); CALCIUM 8.9 MG/DL (8.5-10.1); CHLORIDE 99 MMOL/L (99-107); GLUCOSE 111 MG/DL (70-104); MAGNESIUM 1.7 MG/DL (1.5-2.4); POTASSIUM 4.1 MMOL/L (3.5-5.1); SODIUM 145 MMOL/L (135-145); eGFR 84 ML/MIN
--- NOTE | 2019-03-31 06:10 | NUR ---
Patient in room PCU 3013. I have received report from Macrina HUSAIN and had the opportunity to ask questions and assume patient care.
--- NOTE | 2019-03-31 06:15 | NUR ---
Problems reprioritized. Patient report given, questions answered & plan of care reviewed with Krishna HUSAIN.
[2019-03-31 06:48] LABS: ANION GAP 0 (8-16)
[2019-03-31 06:56] LABS: TOTAL CARBON DIOXIDE 45.7 MMOL/L (24-32)
--- NOTE | 2019-03-31 06:57 | NUR ---
PAGER ID: [phone] MESSAGE: Re: Trip Zamorano, Room: [facility]. Critical serum Co2 45.7 -[facility] #1100 Dr. Conley paged concerning Critical serum Co2 of 45.7.
[2019-03-31] MEDS: furosemide 40mg/4ml inj IV SCH ×2 (07:12→15:51)
[2019-03-31] MEDS: lactobacillus rhamnosus 10,000 MMU CELLS/CAPSULE PO SCH ×2 (07:12→19:11)
[2019-03-31] MEDS: ceFAZolin 1GM/D5W- ADD-VANTAGE 50 ML IV SCH ×2 (07:13→15:52)
[2019-03-31] MEDS: gabapentin 300mg capsule PO SCH ×3 (07:13→15:51)
[2019-03-31] MEDS: K and/or MAG REPLACEMENT MC SCH (08:00)
[2019-03-31] MEDS: enoxaparin 40mg/0.4ml syringe SQ SCH (08:00)
[2019-03-31 11:00] VITALS: BP 117/69
[2019-03-31 15:00] VITALS: BP 132/58
--- NOTE | 2019-03-31 18:00 | NUR ---
Problems reprioritized. Patient report given, questions answered & plan of care reviewed with Janet HUSAIN.
[2019-03-31 19:00] VITALS: BP 128/61
[2019-03-31] MEDS: insulin glargine (Lantus) pen - multi-dose SQ SCH (21:00)
[2019-03-31 23:00] VITALS: BP 116/60
[2019-04-01] MEDS: ceFAZolin 1GM/D5W- ADD-VANTAGE 50 ML IV SCH ×3 (01:03→15:41)
[2019-04-01] MEDS: oxyCODONE IR 5mg (immed. release) tablet PO PRN ×2 (01:03→07:56)
[2019-04-01] MEDS: gabapentin 300mg capsule PO SCH ×3 (01:04→15:41)
[2019-04-01] MEDS: furosemide 40mg/4ml inj IV SCH ×2 (01:04→07:55)
[2019-04-01 03:00] VITALS: BP 134/64
[2019-04-01] MEDS: morphine 4 MG/ML inj SYRINge IV PRN ×2 (04:33→11:00)
[2019-04-01 06:22] LABS: BLOOD UREA NITROGEN 21 MG/DL (7-18); BUN/CREATININE RATIO 27.3 (5.4-32.0); CALCIUM 9.2 MG/DL (8.5-10.1); CHLORIDE 99 MMOL/L (99-107); CREATININE 0.77 MG/DL (0.60-1.10); GLUCOSE 122 MG/DL (70-104); MAGNESIUM 1.6 MG/DL (1.5-2.4); POTASSIUM 3.6 MMOL/L (3.5-5.1); SODIUM 146 MMOL/L (135-145); eGFR > 90 ML/MIN
[2019-04-01 06:30] VITALS: BP 129/77
--- NOTE | 2019-04-01 06:36 | NUR ---
Patient in room PCU 3013B. I have received report from Janet HUSAIN and had the opportunity to ask questions and assume patient care.
[2019-04-01 06:44] LABS: BASOPHILS % (AUTO) 0.5 % (0-1); EOSINOPHILS # (AUTO) 0.2 X10'3 (0-0.9); HEMATOCRIT 34.6 % (42.0-52.0); HEMOGLOBIN 10.9 g/dl (14.0-17.9); LYMPHOCYTES # (AUTO) 0.7 X10'3 (1.1-4.8); LYMPHOCYTES % (AUTO) 12.2 % (21-51); MEAN CORPUSCULAR HEMOGLOBIN 26.9 PG (27.0-31.0); MEAN CORPUSCULAR HGB CONC 31.6 g/dL (33.0-36.5); MEAN PLATELET VOLUME 9.7 FL (7.4-10.4); MONOCYTES # (AUTO) 0.7 X10'3 (0-0.9); MONOCYTES % (AUTO) 11.5 % (2-12); NEUTROPHILS # (AUTO) 4.4 X10'3 (1.8-7.7); NEUTROPHILS % (AUTO) 71.8 % (42-75); PLATELET COUNT 175 X10'3 (140-440); RED BLOOD COUNT 4.07 X10'6 (4.70-6.10); RED CELL DISTRIBUTION WIDTH 15.8 % (11.5-14.5); WHITE BLOOD COUNT 6.1 X10'3 (4.5-11.0)
[2019-04-01 06:47] LABS: ANION GAP -3 (8-16)
[2019-04-01 06:49] LABS: TOTAL CARBON DIOXIDE > 50 MMOL/L (24-32)
--- NOTE | 2019-04-01 06:51 | NUR ---
Received critical result from lab. Paged hospitalist, Dr. Barrera. PAGER ID: [phone] MESSAGE: Licha gwendolyn [phone]. RE Anant Zamorano [id number]. Received critical serum CO2 of greater than 50. Continuing to trend up. Thank you!
[2019-04-01] MEDS: lactobacillus rhamnosus 10,000 MMU CELLS/CAPSULE PO SCH ×2 (07:56→19:30)
[2019-04-01] MEDS: enoxaparin 40mg/0.4ml syringe SQ SCH (07:57)
[2019-04-01] MEDS: K and/or MAG REPLACEMENT MC SCH (08:00)
--- NOTE | 2019-04-01 10:54 | NUR ---
Sent second page to RT for ABG for 3013B STAT ABG for 3013B, Anant Zamorano Thank you!
[2019-04-01 11:00] VITALS: BP 146/67
[2019-04-01 11:21] LABS: ABG HCO3 54.2 mmol/L (22.0-26.0); ABG OXYGEN SATURATION 93.2 % (95-98); ABG PCO2 (T) 93.9 mmHg (35.0-45.0); ABG PH (T) 7.379 (7.350-7.450); ABG PO2 (T) 71.4 mmHg (83-108); ALLEN'S TEST Positive; FCOHb 0.8 % (0.5-1.5); FO2Hb 92.5 % (94-100); TOTAL HEMOGLOBIN 11.9 G/dl (14.0-17.9)
--- NOTE | 2019-04-01 11:31 | NUR ---
Paged Dr Davis regarding ABG results PAGER ID: [phone] MESSAGE: Anais snow [phone]. [id number]. FYI that patients ABG results are in. pCO2 93.9, HCO3 54.2, and pO2 71.4
--- NOTE | 2019-04-01 12:00 | NUR ---
Problems reprioritized. Patient report given, questions answered & plan of care reviewed with Kayley Sahu RN.
--- NOTE | 2019-04-01 12:30 | NUR ---
Initial: Pt admit w/ BLE cellulitis and severe BLE edema per MD note. PO 100% meals meeting needs. Started on lasix and now 1200ml fluid-restricted diet addition per MD. Pt consistent negative 3-4L fluid balance daily since admit. LBM 03/30. Will continue to monitor. Rec: 1. continue carb controlled/1200ml fluid-restricted diet per MD 2. monitor for additional protein need if PO declines 3. routine bowel care on opioids per MD 4. wt per rx Addendum: 04/01/19 at [address] Amended: Links added.
[2019-04-01] MEDS: ipratropium/albuterol 3ml nebule NEB SCH ×3 (14:24→23:19)
[2019-04-01 15:00] VITALS: BP 135/68
[2019-04-01] MEDS: methylPREDNISolone sod succ 125mg/2ml vial IV SCH ×2 (15:40→19:30)
--- NOTE | 2019-04-01 18:04 | NUR ---
Paged Dr. Davis regarding pain medications PAGER ID: [phone] MESSAGE: re [phone] Trip Zamorano patient is c/o 8-02/13 pain. All pain medications were d/c'd. Please advise. Thanks, Kayley [phone]
--- NOTE | 2019-04-01 18:18 | NUR ---
New telephone order from Dr. Davis, Gormania 5/325mg 1tab PO q6 hours PRN for pain
[2019-04-01] MEDS ORDERED: HYDROcodone/acetaminophen 5mg/325mg tablet PO PRN (18:20)
--- NOTE | 2019-04-01 18:30 | NUR ---
Patient in room PCU 3013. I have received report from Kayley Drake RN and had the opportunity to ask questions and assume patient care.
--- NOTE | 2019-04-01 18:41 | NUR ---
Patient in room PCU 3013. I have received report from Kayley HUSAIN and had the opportunity to ask questions and assume patient care.
--- NOTE | 2019-04-01 18:53 | NUR ---
PAGER ID: [phone] MESSAGE: Patient Trip Zamorano in room 3013B is threatening to leave AMA due to dissatisfaction with pain medication. Home medication was also found at bedside and patient is refusing to give home meds to pharmacy. Grabiel Cervantes [id number] Addendum: 04/01/19 at 1900 by Nhi Mancera RN MD Davis increased dosage on pain medication. Nurse will reinforce education on necessity of BiPAP.
[2019-04-01 19:00] VITALS: BP 143/89
[2019-04-01] MEDS ORDERED: HYDROcodone/acetaminophen 10/325mg tab PO PRN (19:05)
[2019-04-01] MEDS: insulin Lispro (HumaLOG) vial - multi-dose SQ SCH ×2 (19:38→21:41)
[2019-04-01] MEDS ORDERED: furosemide 40mg/4ml inj IV SCH (20:00)
--- NOTE | 2019-04-01 20:30 | NUR ---
Patient complied to give home medications to the pharmacy. Nurse searched through all of belongings and found three home medications: a albuterol inhalation pump, 48 count of Tums antacid (calcium carbonate), and 2.5 pill of Carisoprodol 350 MG (Soma). Patient educated on rules/policies and danger of having home medications in room without MD order.
[2019-04-01] MEDS: insulin glargine (Lantus) pen - multi-dose SQ SCH (21:44)
[2019-04-01 22:00] VITALS: BP 138/59
--- NOTE | 2019-04-01 23:52 | NUR ---
Page Sent promotional table spacer PAGER ID: [phone] MESSAGE: pt Trip Zamorano in [id number] here for CHF, LE edema and cellulitis wants to leave AMA due to lack of pt's preferred pain medication regimen. -Ramon [phone] Addendum: 04/02/19 at 0005 by Nhi Mancera RN Dr. Barrera responded to page and is aware that patient wants to leave AMA.
[2019-04-02] MEDS: ceFAZolin 1GM/D5W- ADD-VANTAGE 50 ML IV SCH
[2019-04-02] MEDS: gabapentin 300mg capsule PO SCH
--- NOTE | 2019-04-02 00:17 | NUR ---
pt signed out AMA, pt wanted increased pain medications despite noncompliance with BiPAP and fluid restrictions, pt refused 0000 medications, DR. Barrera notified, pt educated on risks of leaving AMA and current condition, pt's own medication were returned to him, IV left wrist was removed pt left with friend Terrence
== END 2019-04-02 00:25 | disposition left against medical advice (07) | DRG 602 ==
LOC: ER 00:23 → ED HOLD 02:31 → PCU 3S 03:10
PROVIDERS: ADMIT Hospitalist; ATTEND Family Medicine
PROC: 3E0234Z Introduction of Serum, Toxoid and Vaccine into Muscle, Percutaneous Approach (ICD-10-PCS; 2019-03-28)
PROC: 3E02340 Introduction of Influenza Vaccine into Muscle, Percutaneous Approach (ICD-10-PCS; 2019-03-28)
PROC: 5A09357 Assistance with Respiratory Ventilation, Less than 24 Consecutive Hours, Continuous Positive Airway Pressure (ICD-10-PCS; principal; 2019-04-01)
DX: L03.115 Cellulitis of right lower limb (principal); I50.33 Acute on chronic diastolic (congestive) heart failure; J96.00 Acute respiratory failure, unspecified whether with hypoxia or hypercapnia; E87.2 Acidosis; J44.1 Chronic obstructive pulmonary disease with (acute) exacerbation; L03.116 Cellulitis of left lower limb; N50.819 Testicular pain, unspecified; E11.42 Type 2 diabetes mellitus with diabetic polyneuropathy; E78.00 Pure hypercholesterolemia, unspecified; F11.10 Opioid abuse, uncomplicated; G47.30 Sleep apnea, unspecified; I11.0 Hypertensive heart disease with heart failure; I48.91 Unspecified atrial fibrillation; K21.9 Gastro-esophageal reflux disease without esophagitis; N50.89 Other specified disorders of the male genital organs; B19.20 Unspecified viral hepatitis C without hepatic coma; Z53.29 Procedure and treatment not carried out because of patient's decision for other reasons; G89.29 Other chronic pain; M54.9 Dorsalgia, unspecified; Z87.11 Personal history of peptic ulcer disease; Z23 Encounter for immunization; Z88.5 Allergy status to narcotic agent; Z79.899 Other long term (current) drug therapy; Z86.14 Personal history of Methicillin resistant Staphylococcus aureus infection
CPT/HCPCS: 36415; 36600; 71045; 80048; 80053; 82803; 82948; 83605; 83735; 83880; 84145; 84484; 85018; 85025; 85610; 85730; 87040; 87081; 90732; 93005; 94640; 94760; 96374; 97116; 97162; 97530; 99285; G0378; J0690; J0696; J1650; J1815; J1940; J2270; J2930; Q2037

== ENCOUNTER 2019-08-22 22:44 | Emergency (ER) | payer MEDICARE, MEDICAID ==
[~2019-08-22] VITALS: Ht 180.3 cm; Wt 92.8 kg
[~2019-08-22 22:44] MED LIST changes: -CEPH250T PO; -COMP-18; -DOXY100C43 PO; -IRBE150T27 PO; +IRBE75TA8 PO; -LYR75C PO; -TRIA16.5 NS
[2019-08-22 22:51] VITALS: BP 156/60
[2019-08-22] MEDS ORDERED: ketorolac trometh inj. 60 MG/2 ML VIAL IM ONE (23:10)
--- NOTE | 2019-08-22 23:10 | NUR ---
XRAY AT BEDSIDE
== END 2019-08-22 23:48 | disposition home or self-care (01) ==
LOC: ER 22:44
DX: S90.32XA Contusion of left foot, initial encounter (principal); E11.42 Type 2 diabetes mellitus with diabetic polyneuropathy; I48.91 Unspecified atrial fibrillation; I11.0 Hypertensive heart disease with heart failure; I50.9 Heart failure, unspecified; E78.00 Pure hypercholesterolemia, unspecified; G89.29 Other chronic pain; J44.9 Chronic obstructive pulmonary disease, unspecified; I27.20 Pulmonary hypertension, unspecified; G47.30 Sleep apnea, unspecified; Z86.19 Personal history of other infectious and parasitic diseases; Z86.14 Personal history of Methicillin resistant Staphylococcus aureus infection; Z98.890 Other specified postprocedural states; Z56.0 Unemployment, unspecified; Z88.5 Allergy status to narcotic agent; Z79.4 Long term (current) use of insulin; Z79.899 Other long term (current) drug therapy; W05.1XXA Fall from non-moving nonmotorized scooter, initial encounter; Y93.89 Activity, other specified; Y92.89 Other specified places as the place of occurrence of the external cause; Y99.8 Other external cause status
CPT/HCPCS: 73630; 96372; 99283; J1885